=== PATIENT | female | born 1990 | race Hispanic/Latino ===

== ENCOUNTER 2016-12-05 16:51 | Emergency (ER) | payer OTHER ==
[~2016-12-05] VITALS: Ht 152.4 cm; Wt 119.3 kg
[~2016-12-05 16:51] MED LIST: PANTOPRAZOLE SO40 M1 PO
--- NOTE | 2016-12-05 17:11 | ED CARDIAC/CP/PALPITATIONS ---
History of Present Illness General Chief Complaint: Chest Pain Stated Complaint: BIBA WITH CHEST PAIN Source: patient, old records Exam Limitations: no limitations Vital Signs & Intake/Output Vital Signs & Intake/Output Vital Signs Date Time Temp Pulse Resp B/P Pulse O2 O2 Flow FiO2 Ox Delivery Rate 12/05 1917 96.7 66 18 125/77 98 Room Air 12/05 1708 Room Air 12/05 1657 97.3 58 18 110/56 99 Room Air Allergies Coded Allergies: Iodinated Contrast Media - Oral and (UNKNOWN 11/12/16) Reconcile Medications Pantoprazole Sodium 40 MG TABLET. 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 PT DENIES CARDIAC HX, DENIES SOB, DENIES ABD PAIN, V/D, DENIES URINARY S/S. ARRIVED AAOx3, STILL HAS CHEST PAIN 6/10, VSS, NSR, AFEBRILE. 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 EKG IN PROGRESS. Triage Nurses Notes Reviewed? 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 She reports positive nausea she denies shortness of breath there is no pain with deep inspiration. She states she was seen at [facility] a week ago for similar symptoms with no known cause identified. She denies cough fever chills no hemoptysis no leg pain most leg swelling. She denies any abdominal pain no back pain there is no radiation of her symptoms. She is declining anything for pain when offered she has not taken anything for her symptoms. Past History Travel History Traveled to [place] past 21 day No Medical History Any Pertinent Medical History? none Surgical History Surgical History: none Psychosocial History What is your primary language Greenlandic Tobacco Use: Never used ETOH Use: denies use Illicit Drug Use: denies illicit drug use Family History Hx Contributory? No Review of Systems Review of Systems Constitutional: Reports: no symptoms, see HPI. All Other Systems: Reviewed and Negative Comments Review of systems: See HPI, All other systems negative. Constitutional, no chills no fever, no malaise HEENT: No visual changes no sore throat no congestion Cardiovascular: chest pain , no palpitation Skin, no jaundice no rashes, no change in skin Respiratory: No dyspnea no cough no sputum GI: No nausea no vomiting, no diarrhea, : No dysuria Muscle skeletal: No joint pain, no joint swelling, no back pain, no neck pain Neurologic: No numbness no headache Psych: No stress Heme/endocrine: No bruising no bleeding Immunology: No lymphadenopathy Physical Exam Physical Exam General Appearance: well developed/nourished, alert, awake, comfortable Cardiovascular: regular rate/rhythm Comments: Well-developed well-nourished person in no acute distress HEENT: Normal EENT exam; PERRL, EOMI, HEAD is atraumatic. moist mucous membranes. Neck: Supple, no lymphadenopathy, normal range of motion Back: Nontender, no CVA tenderness. Full range of motion Cardiovascular: Regular rate and rhythms no murmurs rubs or gallops, normal JVP Respiratory: Chest tender to palpation.There were no bony deformities, no asymmetry. No respiratory distress. Patient speaking in full complete sentences. Breath sounds clear to auscultation bilaterally: NO W/R/R Abdomen: Soft, nontender nondistended, no appreciable organomegaly. Normal bowel sounds. No rebound/guarding, Extremity: No edema, full range of motion of extremities Neuro: Alert oriented x3, motor sensory normal, There were no obvious focal neurologic abnormalities. Skin: No appreciable rash on exposed skin, skin is warm and dry. Psych: Mood and affect is normal, memory and judgment is normal. Core Measures ACS in differential dx? No Severe Sepsis Present: No Septic Shock Present: No All Positive = PERC Ruled Out: Positive: age < 50 years, heart rate < 100 bpm, O2 sat > 94%, no hemoptysis, no hormone use, no prior DVT or PE, no unilateral leg swellin, no surgery/trauma w/ in 4w. Progress Differential Diagnosis: AMI, aortic dissection, CHF/pulm edema, costochondritis, hyperventilation, musculoskeletal pain, myocarditis, pericarditis, pneumonia, pneumothorax, pulmonary embolism Plan of Care: Orders Procedure Date/time Status TROPONIN LEVEL 12/05 1722 Complete HUMAN BETA HCG SCREEN 12/05 1722 Complete COMPREHENSIVE METABOLIC PANEL 12/05 1722 Complete CBC WITHOUT DIFFERENTIAL 12/05 1722 Complete EKG 12/05 1652 Active Laboratory Tests 12/05/168: Anion Gap 15, Estimated GFR > 60, BUN/Creatinine Ratio 18.3, Glucose 99, Calcium 9.7, Total Bilirubin 1.2, AST 107 H, ALT 49, Alkaline Phosphatase 78, Troponin I < 0.01, Total Protein 7.0, Albumin 4.0, Globulin 3.0, Albumin/Globulin Ratio 1.3, Total Beta HCG NEGATIVE, CBC w Diff NO MAN DIFF REQ, RBC 4.43, MCV 92.3, MCH 31.1 H, RDW 14.0, MPV 9.8, Gran % 81.0 H, Lymphocytes % 12.0 L, Monocytes % 6.4, Eosinophils % 0.4, Basophils % 0.2, Absolute Granulocytes 8.7 H, Absolute Lymphocytes 1.3, Absolute Monocytes 0.7 H, Absolute Eosinophils 0, Absolute Basophils 0, PUBS MCHC 33.7 Labs ordered old records reviewed patient is refusing anything for pain when offered resting currently in stretcher on her phone case d.w dr vince de la cruz with plan 12/05/2016 6:58:32 PM discussed the patient at length all of her lab results perc neg, he was reproducible with palpation of the chest she denies any symptoms she 's been normal sinus in the 60s on the monitor. Negative Homans sign I do not believe she requires further workup including CTA is currently off her lab results.'s discussed with her need to follow-up with Her primary care physician advised need to return anytime sooner with any concerns. They feel comfortable plan (ZULEYKA PISANO,BRYAN) Diagnostic Imaging: Viewed by Me: Radiology Read. Discussed w/RAD: Radiology Read. Radiology Impression: PATIENT: AMADA VILA PRESENT AGE: 26 PATIENT ACCOUNT NO: [id number] : 91 LOCATION: [facility] ORDERING PHYSICIAN: BRYAN PISANO SERVICE DATE: 12/05/16-1722 EXAM TYPE: RAD - XRY-PORTABLE CHEST XRAY EXAMINATION: XR PORTABLE CHEST CLINICAL INFORMATION: Chest pain. Cardiomegaly. COMPARISON: None. TECHNIQUE: Portable view of the chest was obtained. 5:39 PM FINDINGS: No significant abnormality is noted involving the heart, lungs, mediastinum, bony thorax or soft tissues. IMPRESSION: Unremarkable examination. DICTATED BY: TINA OCAMPO MD DATE/TIME DICTATED:12/05/161804 [employer] DATABASE MANAGER:CURRY DATE/TIME TRANSCRIBED:1804 CONFIDENTIAL, DO NOT COPY WITHOUT APPROPRIATE AUTHORIZATION. < Electronically signed in Other Vendor System> SIGNED BY: TINA OCAMPO MD 1808 Initial ED EKG: normal sinus at 60, no acute ST segment changes normal axis Departure Departure Time of Disposition: 1849 Disposition: HOME OR SELF CARE Condition: Stable Clinical Impression Primary Impression: Atypical chest pain Referrals: AFUA LARA MD (PCP/Family) Additional Instructions: Follow-up with your primary care physician. Tylenol 1000 mg every 8 hours as needed for pain Departure Forms: Customer Survey General Discharge Information Critical Care Note Critical Care Note Critical Care Time: non-applicable
[2016-12-05 17:37] LABS: ABSOLUTE BASOPHIL COUNT 0 /CUMM (0.0-0.2); ABSOLUTE EOSINOPHIL COUNT 0 /CUMM (0.0-0.7); ABSOLUTE GRANULOCYTE CT 8.7 /CUMM (1.4-6.5); ABSOLUTE LYMPH COUNT 1.3 /CUMM (1.2-3.4); ABSOLUTE MONOCYTE COUNT 0.7 /CUMM (0.10-0.60); BASOPHIL % 0.2 % (0.0-2.0); EOSINOPHIL % 0.4 % (0-5); HEMATOCRIT 40.9 % (37-47); MEAN CORPUSCULAR HGB 31.1 PG (27.0-31.0); MEAN CORPUSCULAR HGB CONC 33.7 G/DL (33.0-37.0); MEAN CORPUSCULAR VOLUME 92.3 FL (81.0-99.0); MEAN PLATELET VOLUME 9.8 FL (7.4-10.4); PLATELET COUNT 228 /CUMM (130-400); RED BLOOD CELL CT 4.43 /CUMM (4.20-5.40); WHITE BLOOD CELL COUNT 10.8 /CUMM (4.8-10.8)
--- NOTE | 2016-12-05 18:09 | RADIOLOGY REPORT ---
EXAMINATION: XR PORTABLE CHEST CLINICAL INFORMATION: Chest pain. Cardiomegaly. COMPARISON: None. TECHNIQUE: Portable view of the chest was obtained. 5:39 PM FINDINGS: No significant abnormality is noted involving the heart, lungs, mediastinum, bony thorax or soft tissues. IMPRESSION: Unremarkable examination.
[2016-12-05 19:17] VITALS: BP 125/77
== END 2016-12-05 19:19 ==
LOC: ERH 16:51
PROVIDERS: Physician Assistant Medical
DX: R07.89 Other chest pain (principal)
CPT/HCPCS: 93005; 93010

== ENCOUNTER 2016-12-30 02:15 | Emergency (ER) | payer OTHER ==
[~2016-12-30] VITALS: Ht 165.1 cm; Wt 115.7 kg
--- NOTE | 2016-12-30 02:31 | ED GI/GU/ABDOMINAL COMPLAINT ---
History of Present Illness General Chief Complaint: General Adult Stated Complaint: "+N+V-D, UPPER ABD PAIN, HX BARIATRIC [id number]" Source: patient Exam Limitations: no limitations Vital Signs & Intake/Output Vital Signs & Intake/Output Vital Signs Date Time Temp Pulse Resp B/P Pulse O2 O2 Flow FiO2 Ox Delivery Rate 12/30 0459 97.9 70 18 109/68 98 Room Air 12/30 0347 Room Air 12/30 0247 97.7 76 18 101/66 98 Room Air Allergies Coded Allergies: Iodinated Contrast Media - Oral and (UNKNOWN 11/12/16) Reconcile Medications Ondansetron (Zofran Odt) 4 MG TAB.RAPDIS 1 TAB SL TID PRN NAUSEA Pantoprazole Sodium (Protonix) 40 MG TABLET.DR 1 TAB PO DAILY STOMACH PAIN Triage Nurses Notes Reviewed? yes ? n Is pt currently ? No Onset: Gradual Duration: hour(s): Timing: recent history Quality/Severity: burning Location: epigastric Radiation: no radiation Activities at Onset: none Modifying Factors: Worsens With: palpation, vomiting. Associated Symptoms: abdominal pain HPI: 26-year-old woman history of gastric sleeve presents with midepigastric burning pain and vomiting that began at approximately 7 PM yesterday. She is uncertain of any possible etiology. She notes nausea, but no fever, diarrhea, shortness of breath, chest pain. She is otherwise well. Past History Travel History Traveled to [place] past 21 day No Medical History Any Pertinent Medical History? see below for history Surgical History Surgical History: gastric sleeve, August 2016 Psychosocial History What is your primary language Mongolian Family History Hx Contributory? No Review of Systems Review of Systems Constitutional: Reports: no symptoms. EENTM: Reports: no symptoms. Respiratory: Reports: no symptoms. Cardiovascular: Reports: no symptoms. GI: Reports: no symptoms. Genitourinary: Reports: no symptoms. Musculoskeletal: Reports: no symptoms. Skin: Reports: no symptoms. Neurological/Psychological: Reports: no symptoms. Hematologic/Endocrine: Reports: no symptoms. Immunologic/Allergic: Reports: no symptoms. All Other Systems: Reviewed and Negative Physical Exam Physical Exam General Appearance: well developed/nourished, mild distress Head: atraumatic, normal appearance Eyes: Bilateral: normal appearance. Ears, Nose, Throat, Mouth: hearing grossly normal Neck: normal inspection, supple, full range of motion Respiratory: normal breath sounds, chest non-tender, no respiratory distress, quiet respiration Cardiovascular: regular rate/rhythm Gastrointestinal: normal bowel sounds, soft, mid epigastric tenderness. No rebound no guarding. No Green sign Back: normal inspection Extremities: normal range of motion Neurologic/Psych: no motor/sensory deficits, awake, alert, oriented x 3 Skin: intact, normal color, warm/dry Core Measures ACS in differential dx? No Severe Sepsis Present: No Septic Shock Present: No Progress Differential Diagnosis: astritis versus gastroenteritis versus other Plan of Care: Laboratory Tests 12/30/16 0230: Total Bilirubin Cancelled, Direct Bilirubin Cancelled, AST Cancelled, ALT Cancelled, Alkaline Phosphatase Cancelled, Total Protein Cancelled, Albumin Cancelled, CBC w Diff Cancelled, WBC Cancelled, RBC Cancelled, Hgb Cancelled, Hct Cancelled, MCV Cancelled, MCH Cancelled, RDW Cancelled, Plt Count Cancelled, MPV Cancelled, PUBS MCHC Cancelled Initial ED EKG: none Departure Departure Disposition: HOME OR SELF CARE Condition: Stable Clinical Impression Primary Impression: Abdominal pain Secondary Impressions: Gastroenteritis Referrals: AFUA LARA MD (PCP/Family) Departure Forms: Customer Survey General Discharge Information Prescriptions: Current Visit Scripts Pantoprazole Sodium (Protonix) 1 TAB PO DAILY #30 TAB Ondansetron (Zofran Odt) 1 TAB SL TID PRN NAUSEA #10 TAB Comments 12/30/2016, 3:44 AM - after several attempts for blood draw, they have been unsuccessful. I discussed this at length with the patient. Given that she likely has gastroenteritis or gastritis, will try supportive measures before attempting further blood draw. The patient expresses appreciation at this plan. 12/30/16, 4:45am... pt feeling well after supportive measures. She declines blood draw. She would like to go home. Her abdominal exam is benign. She is safe for discharge with close follow up.
[2016-12-30] MEDS ORDERED: ZOFRAN ODT4 M1 SL (03:23)
[2016-12-30] MEDS ORDERED: PROTONIX40 M3 PO (03:23)
[2016-12-30 04:59] VITALS: BP 109/68
== END 2016-12-30 04:59 ==
LOC: ERH 02:15
DX: K52.9 Noninfective gastroenteritis and colitis, unspecified (principal)
CPT/HCPCS: 96372; J1885; J3101

== ENCOUNTER 2017-02-05 21:47 | Inpatient (IN) | payer OTHER ==
[~2017-02-05] VITALS: Ht 165.1 cm; Wt 111.6 kg
[~2017-02-05 21:47] MED LIST changes: +PROTONIX40 M3 PO; +ZOFRAN ODT4 M1 SL
--- NOTE | 2017-02-05 22:07 | ED GI/GU/ABDOMINAL COMPLAINT ---
History of Present Illness General Chief Complaint: Abdominal Pain/Flank Pain Stated Complaint: BIBA FOR EVAL EPI GASTRIC PAIN Source: patient, old records Exam Limitations: no limitations Vital Signs & Intake/Output Vital Signs & Intake/Output Vital Signs Date Time Temp Pulse Resp B/P Pulse O2 O2 Flow FiO2 Ox Delivery Rate 02/05 2149 97.0 63 18 120/67 95 Room Air Room Air ED Intake and Output 02/06 0000 02/05 1200 Intake Total 1000 Output Total Balance 1000 Intake, IV 1000 Allergies Uncoded Allergies: IODINE IV CONTRAST (02/05/17) Reconcile Medications Ondansetron (Zofran Odt) 4 MG TAB.RAPDIS 1 TAB SL TID PRN NAUSEA Pantoprazole Sodium (Protonix) 40 MG TABLET.DR 1 TAB PO DAILY STOMACH PAIN Triage Note: 26 YEAR OLD FEMALE BIBA FROM HOME C/O EPIGASTRIC PAIN 7/10 WITH NAUSEA AND VOMITING. PER [facility] PT RECIEVED 5MG OF IV MORPHINE AND 4MG IV ZOFRAN PER MEDIC. #18 ESTABLISHED TO LEFT HAND WITH NS LITER BOLUS RUNNING. PT ALERT AND ORIENTED X3, CLEAR SPEECH. REPORTS SYMPTOMS STARTED AT 1100 AM. REPORTS HISTORY OF GASTRIC SLEEVE AND GERD.' Triage Nurses Notes Reviewed? yes ? n Is pt currently ? No Onset: Abrupt Duration: hour(s): (12), constant Timing: recent history Quality/Severity: aching, cramping, moderate, severe Severity Numbers: 7 Location: epigastric Radiation: no radiation Activities at Onset: none Prior Abdominal Problems: recent trauma No Modifying Factors: none Associated Symptoms: nausea/vomiting HPI: 26-year-old female history of gastric sleeve surgery in August 2016 at [facility] presents emergency room brought in by ambulance complaining of sudden onset epigastric nonradiating abdominal pain 7 out of 10 associated nausea vomiting 2. The patient received 5 mg of morphine IV and 4 mg of Zofran in route with improvement in her symptoms. The patient denies any diarrhea sick contacts recent travel. She denies any other surgeries on her abdomen in the past. Pain is nonradiating chest pain shortness of breath fever or chills. Patient denies alcohol or tobacco use. Pain is aching constant. There are no modifying factors or associated symptoms. The patient took by mouth Zofran at home without improvement in her symptoms. (ZULEYKA PISANO,BRYAN) Past History Travel History Traveled to [place] past 21 day No Medical History Any Pertinent Medical History? 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 No (BRYAN CORDOVA) Review of Systems Review of Systems Constitutional: Reports: see HPI. All Other Systems: Reviewed and Negative Comments Review of systems: See HPI, All other systems negative. Constitutional, no chills no fever, no malaise HEENT: No visual changes no sore throat no congestion, no ear pain Cardiovascular: No chest pain , no palpitation , Skin, no jaundice no rashes, no change in skin Respiratory: No dyspnea no cough no sputum no hemoptysis GI: nausea vomiting, no diarrhea, no bloating/constipation : No dysuria No hematuria, no frequency, Muscle skeletal: No joint pain, no back pain, no neck pain, Neurologic: No numbness, no headache Psych: No stress Heme/endocrine: No bruising no bleeding Immunology: No lymphadenopathy (BRYAN CORDOVA) Physical Exam Physical Exam General Appearance: well developed/nourished, no apparent distress, alert, awake Gastrointestinal: soft, tenderness Comments: Well-developed well-nourished person in no acute distress HEENT: Normal EENT exam; PERRL, EOMI. HEAD is atraumatic. moist mucous membranes. Neck: Supple, normal range of motion Back: Nontender, no CVA tenderness. Full range of motion Cardiovascular: Regular rate and rhythms no murmurs rubs Respiratory: Chest nontender.There were no bony deformities, no asymmetry. No respiratory distress. Patient speaking in full complete sentences. Breath sounds clear to auscultation bilaterally: NO W/R/R Abdomen: Soft, EPIGASTRIC TENDERNESS, NO RUQ TENDERNESS, NEG YOST SIGNS, nondistended, no appreciable organomegaly. Normal bowel sounds. No rebound/ guarding, No appreciable enlargement of the abdominal aorta, No ascites. Extremity: No edema, full range of motion of extremities Neuro: Alert oriented x3, motor sensory normal, There were no obvious focal neurologic abnormalities. Skin: No appreciable rash on exposed skin, skin is warm and dry. No jaundice Psych: Mood and affect is normal, memory and judgment is normal. Core Measures ACS in differential dx? No Severe Sepsis Present: No Septic Shock Present: No (ZULEYKA PISANO,BRYAN) Progress Differential Diagnosis: appendicitis, biliary colic, bowel obstruction, colon cancer, cholecystitis, diverticulitis, gastritis, hepatitis, inflamm bowel dis, pancreatitis, cholelithiasis, cholangitits, choledocholithiasis Plan of Care: Orders Procedure Date/time Status Nothing by Mouth 02/06 B Active US-LIMITED ABDOMEN 02/06 0700 Active LACTIC ACID 02/06 0105 Active Add-on Test (ER Only) 02/06 0051 Active Admit to inpatient 02/06 0028 Active Vital Signs 02/06 0028 Active Code Status 02/06 0028 Active Patient Data 02/06 0025 Active Add-on Test (ER Only) 02/06 0013 Active URINE DRUG SCREEN FOR ER ONLY 02/06 0013 Active URINALYSIS 02/06 0013 Active ETHANOL 02/05 2242 Active DIRECT BILIRUBIN 02/05 2242 Active LIPASE 02/05 2205 Active LACTIC ACID 02/05 2205 Active HUMAN BETA HCG SCREEN 02/05 2205 Active COMPREHENSIVE METABOLIC PANEL 02/05 2205 Active CBC WITHOUT DIFFERENTIAL 02/05 2205 Complete AMYLASE 02/05 2205 Active Intake & Output 02/05 2153 Active Laboratory Tests 02/06/17 0035: Methadone Screen Pending, Barbiturate Screen Pending, Ur Phencyclidine Scrn Pending, Amphetamines Screen Pending, U Benzodiazepines Scrn Pending, Urine Cocaine Screen Pending, Urine Cannabis Screen Pending, Urine Color Pending, Urine Clarity Pending, Urine pH Pending, Ur Specific [place] Pending, Urine Protein Pending, Urine Ketones Pending, Urine Nitrite Pending, Urine Bilirubin Pending, Urine Urobilinogen Pending, Ur Leukocyte Esterase Pending, Ur Microscopic SEDIMENT EXAMINED, Urine RBC Pending, Urine Hemoglobin Pending, Urine Glucose Pending 02/05/17 2242: Anion Gap 9, Estimated GFR > 60, BUN/Creatinine Ratio 20.0, Glucose 100 H, Lactic Acid 1.0, Calcium 9.4, Total Bilirubin 2.1 H, Direct Bilirubin Pending, AST 788 H, ALT 462 H, Alkaline Phosphatase 145 H, Total Protein 6.4, Albumin 3.7, Globulin 2.7, Albumin/Globulin Ratio 1.4, Amylase 45, Lipase 66, Total Beta HCG NEGATIVE, CBC w Diff NO MAN DIFF REQ, RBC 4.11 L, MCV 93.2, MCH 31.2 H, RDW 13.5, MPV 9.3, Gran % 83.6 H, Lymphocytes % 8.9 L, Monocytes % 7.3, Eosinophils % 0.1, Basophils % 0.1, Absolute Granulocytes 6.6 H, Absolute Lymphocytes 0.7 L, Absolute Monocytes 0.6, Absolute Eosinophils 0, Absolute Basophils 0, PUBS MCHC 33.5, Serum Alcohol < 10.0 Labs ordered old records reviewed patient is declining anything else for pain or nausea at this time IV fluids are running 02/05/2017 11:38:26 PM I discussed with the patient at length all of her lab results CT findings. Patient is resting currently denies pain or nausea at this time call was placed to GI case discussed with Dr. Kemp Case discussed with Dr. green who will consult- advised pt could have ercp at this faciliity despite gastric sleeve case d/w dr mcelroy will admit, us for the morning ordered as us has not been available during the pts er evaluation, on repeat eval pt again denies any complaints abd soft nontender, (BRYAN CORDOVA) Diagnostic Imaging: Viewed by Me: CT Scan. Discussed w/RAD: CT Scan. Initial ED EKG: none (BRYAN CORDOVA) Departure Departure Disposition: STILL A PATIENT Condition: Stable Clinical Impression Primary Impression: Transaminitis Secondary Impressions: Abdominal pain, Elevated bilirubin Referrals: AFUA LARA MD Departure Forms: Customer Survey General Discharge Information Admission Note Spoke With: CIPRIANO MCELROY MD Documentation of Exam: Documentation of any treatments & extenuating circumstances including Concerns Regarding Discharge (functional status, medication knowledge or non-compliance, living conditions, etc.) that warrant an admission rather than observation: GI consult possible ercp, trend labs, iv pain medications, iv antiemetics given elevated liver function tests which are new compared to recent premature discharge would be medically harmful (BRYAN CORDOVA) PA/METALLURGICAL OR MATERIALS TECHNICIAN Co-Sign Statement Statement: ED Attending supervision documentation- [] I saw and evaluated the patient. I have also reviewed all the pertinent lab results and diagnostic results. I agree with the findings and the plan of care as documented in the PA's/METALLURGICAL OR MATERIALS TECHNICIAN's documentation. [X] I have reviewed the ED Record and agree with the PA's/METALLURGICAL OR MATERIALS TECHNICIAN's documentation. [] Additions or exceptions (if any) to the PAs/METALLURGICAL OR MATERIALS TECHNICIAN's note and plan are summarized below: [] (TAMIKA WHITE,SADIE)
[2017-02-05 22:48] LABS: ABSOLUTE BASOPHIL COUNT 0 /CUMM (0.0-0.2); ABSOLUTE EOSINOPHIL COUNT 0 /CUMM (0.0-0.7); ABSOLUTE GRANULOCYTE CT 6.6 /CUMM (1.4-6.5); ABSOLUTE LYMPH COUNT 0.7 /CUMM (1.2-3.4); ABSOLUTE MONOCYTE COUNT 0.6 /CUMM (0.10-0.60); BASOPHIL % 0.1 % (0.0-2.0); EOSINOPHIL % 0.1 % (0-5); HEMATOCRIT 38.3 % (37-47); MEAN CORPUSCULAR HGB 31.2 PG (27.0-31.0); MEAN CORPUSCULAR HGB CONC 33.5 G/DL (33.0-37.0); MEAN CORPUSCULAR VOLUME 93.2 FL (81.0-99.0); MEAN PLATELET VOLUME 9.3 FL (7.4-10.4); PLATELET COUNT 229 /CUMM (130-400); RBC DISTRIBUTION WIDTH 13.5 % (11.5-14.5); RED BLOOD CELL CT 4.11 /CUMM (4.20-5.40); WHITE BLOOD CELL COUNT 7.8 /CUMM (4.8-10.8)
[2017-02-05 22:49] LABS: GRANULOCYTE % 83.6 % (42.2-75.2)
--- NOTE | 2017-02-05 23:30 | CT SCAN REPORT ---
EXAMINATION: CT ABDOMEN AND PELVIS WITHOUT CONTRAST CLINICAL INFORMATION: Epigastric pain. History of gastric sleeve bypass surgery. COMPARISON: CT abdomen pelvis 09/30/2016 TECHNIQUE: Multidetector volumetric imaging was performed from the superior aspect of the liver through the pubic symphysis. Sagittal and coronal reformatted images were obtained on the technologist's workstation. No oral or intravenous contrast. DLP: 1014.33 mGy-cm FINDINGS: LUNG BASES: The visualized lung bases are unremarkable. LIVER, GALLBLADDER, AND BILIARY TREE: The liver is normal in size, shape, and attenuation. No focal hepatic lesion or biliary ductal dilatation is present. The gallbladder is unremarkable with no evidence of radiopaque gallstones, gallbladder wall thickening, or obvious pericholecystic inflammatory changes. PANCREAS: Unremarkable. SPLEEN: Unremarkable. ADRENAL GLANDS: Unremarkable. KIDNEYS AND URETERS: The kidneys are normal in size, shape, and attenuation. No hydronephrosis, hydroureter, or calculi seen. No perinephric stranding. BLADDER: Unremarkable. GASTROINTESTINAL TRACT: Status post gastric surgery. No acute change of the bowel. No bowel wall thickening. No bowel obstruction. Moderate volume of stool throughout the colon. The appendix is normal. Small bowel loops are unremarkable. ABDOMINAL WALL: No significant hernia is appreciated. LYMPH NODES: Normal. VASCULAR: Unremarkable. PELVIC VISCERA: Uterus is anteverted. No adnexal abnormality. OSSEOUS STRUCTURES: Unremarkable. IMPRESSION: No acute abnormality CT scan abdomen and pelvis.
--- NOTE | 2017-02-06 02:03 | History & Physical ---
GABO WHITE,MEAGAN 02/06/17 0203: General Information and HPI MD Statement: I have seen and personally examined SHARMAINE VILA and documented this H&P. The patient is a 26 year old F who presented with a patient stated chief complaint of [, pain]. Source of Information: patient, old records Exam Limitations: no limitations History of Present Illness: This is a 26-year-old female past medical history significant for sleep apnea on CPAP, gastric sleeve in and 2015, and a D&C, who comes in with chief complaint of epigastric pain. Patient states that she was at work when she felt dizzy, had a hot flash and subsequently had epigastric pain. She also had some nausea and nonbilious, nonbloody vomiting. She states that she has had similar epigastric abdominal pain that is worse with eating after her surgery but attributed it to postsurgical state. She states the pain continues to be worse with eating and that she has one to 2 episodes a month of similar presentation. However this is the worst it has been. She endorses nausea, vomiting, body aches but denies any chills, fever or diarrhea. Denies sick contacts or travel. She took two Zofran but threw them up. Patient denies smoking, alcohol consumption, or IV drug abuse. However she states she used marijuana yesterday. She states that she uses marijuana 1-2 times a year. Her symptoms were not relieved or exacerbated by the marijuana. Home meds are pantoprazole and Zofran. No personal history or family history of gallstones or intra-abdominal pathology. Allergies/Medications Allergies: Uncoded Allergies: IODINE IV CONTRAST (02/05/17) Home Med list Ondansetron (Zofran Odt) 4 MG TAB.RAPDIS 1 TAB SL TID PRN NAUSEA Pantoprazole Sodium (Protonix) 40 MG TABLET. 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 Ambulation: independent IADLs Independent: shopping, housework, finances, food prep, telephone, transportation , medication admin. Review of Systems Review of Systems Constitutional: Reports: chills. Denies: diaphoresis, fever, malaise, weakness. EENTM: Denies: blurred vision. Cardiovascular: Denies: chest pain, palpitations. Respiratory: Denies: cough, short of breath. GI: Reports: abdominal pain, constipation, nausea, vomiting. Denies: bloating, bloody stool. Genitourinary: Reports: no symptoms. Musculoskeletal: Reports: no symptoms. Skin: Reports: no symptoms. Exam & Diagnostic Data Last 24 Hrs of Vital Signs/I&O Vital Signs Date Time Temp Pulse Resp B/P Pulse O2 O2 Flow FiO2 Ox Delivery Rate 02/06 0248 97.7 50 20 104/60 99 Room Air 02/06 0213 53 16 119/69 98 Room Air 02/05 2149 97.0 63 18 120/67 95 Room Air Room Air Intake & Output 02/06 0800 02/06 0000 02/05 1600 Intake Total 100 1000 Output Total Balance 100 1000 Intake, IV 100 1000 Patient 112.037 kg Weight Physical Exam General Appearance Alert, Oriented X3, Cooperative, No Acute Distress Skin No Rashes, No Breakdown, No Significant Lesion, NO EVIDENCE OF JAUNDICE HEENT Atraumatic, PERRLA, EOMI, Mucous Membr. moist/pink, SCLERA ANICTERIC Neck Supple Cardiovascular Regular Rate, Normal S1, Normal S2, 2/6 SYSTOLIC MURMUR Lungs Clear to Auscultation, Normal Air Movement Abdomen PATIENT HAD HYPOACTIVE BOWEL SOUNDS. pOSITIVE Green'S SIGN TO DEEP PALPATION IN RIGHT UPPER QUADRANT. sHE HAD SOME DIFFUSE TENDERNESS IN THE EPIGASTRIC AND LEFT UPPER QUADRANT WELL. nO REBOUND, NO GUARDING. sOFT ABDOMEN. Neurological Normal Speech, Cranial Nerves 3-12 NL Extremities No Edema Last 24 Hrs of Labs/Rory: Laboratory Tests 02/06/17 0211: PT Cancelled, INR Cancelled 02/06/17 0105: Lactic Acid Cancelled 02/06/17 0035: Urine Opiates Screen > 4000.00 H, Methadone Screen < 40, Barbiturate Screen < 60, Ur Phencyclidine Scrn < 6.00, Amphetamines Screen < 100, U Benzodiazepines Scrn < 85, Urine Cocaine Screen < 50, Urine Cannabis Screen 75.70 H, Urine Color YEL, Urine Clarity CLEAR, Urine pH 6.0, Ur Specific [place] >= 1.030, Urine Protein TRACE H, Urine Ketones NEG, Urine Nitrite POS H, Urine Bilirubin POS@ICTO H, Urine Urobilinogen 4.0 H, Ur Leukocyte Esterase NEG, Ur Microscopic SEDIMENT EXAMINED, Urine WBC RARE, Ur Epithelial Cells FEW, Urine Bacteria MOD H, Urine Hemoglobin NEG, Urine Glucose NEG 02/05/17 2242: Anion Gap 9, Estimated GFR > 60, BUN/Creatinine Ratio 20.0, Glucose 100 H, Lactic Acid 1.0, Calcium 9.4, Total Bilirubin 2.1 H, Direct Bilirubin 1.3 H, AST 788 H, ALT 462 H, Alkaline Phosphatase 145 H, Total Protein 6.4, Albumin 3.7, Globulin 2.7, Albumin/Globulin Ratio 1.4, Amylase 45, Lipase 66, Total Beta HCG NEGATIVE, CBC w Diff NO MAN DIFF REQ, RBC 4.11 L, MCV 93.2, MCH 31.2 H, RDW 13.5, MPV 9.3, Gran % 83.6 H, Lymphocytes % 8.9 L, Monocytes % 7.3, Eosinophils % 0.1, Basophils % 0.1, Absolute Granulocytes 6.6 H, Absolute Lymphocytes 0.7 L, Absolute Monocytes 0.6, Absolute Eosinophils 0, Absolute Basophils 0, PUBS MCHC 33.5, Serum Alcohol < 10.0 Assessment/Plan Assessment: This is a 26-year-old female past medical history of sleep apnea and gastric sleeve who presents with chief complaint of abdominal pain. Workup has shown elevated LFTs, with abdominal CT shows no acute intra-abdominal pathology including gallstones. Patient is admitted for further workup and pain management. ED workup shows: Vitals: 97, 63, 18, 120/67, 95. AST 78, ALT 462, alkaline phosphatase 145. Beta hCG negative. Negative amylase and lipase. BEP within normal limits. White count 7.8, hemoglobin 12.8 and hematocrit 38.3. UA showed positive urine bilirubin attention of 4, positive urine nitrite and bacteria. abdominal CT showed no acute intra-abdominal process. PLAN Abdominal pain with transamanitis: At this time etiology of abdominal pain is currently unclear. Patient has elevated AST and ALT at 788 and 462. Her alkaline phosphatase is 145. Denies any history of alcohol abuse; her alcohol level was negative. There is a question of PEERZ given her body habitus. Additionally, given that she is post gastric sleeve and pain seems to get worse with eating, there is concern for gallbladder pathology. However alkaline phosphatase is only 145 with much higher increase in AST/ALT. Need to rule out possibility of choledocholithiasis or distal stone obstruction. * Right upper quadrant ultrasound * GI consult * IV fluid * Unasyn * Urine tox * IV Protonix 40 mg twice a day * Patient going for GI intervention, ERCP in a.m. * Fractionated Bili * Trend LFT * Check INR FULL CODE NPO CHEMICAL DVT PPX As Ranked By This Provider Problem List: 1. Abdominal pain 2. Transaminitis Core Measures/Miscellaneous Acute Coronary Syndrome ACS Diagnosis: No Cerebrovascular Accident CVA/TIA Diagnosis: No Congestive Heart Failure CHF Diagnosis: No Venous Thromboembolism VTE Risk Factors: Age > 40 [facility] prophylaxis d/t: No contraindications No VTE Pharm Prophylaxis d/t: No contraindications VTE Diagnosis: No VTE Type: NONE VTE Confirmed by (Test): NONE Severe Sepsis Severe Sepsis Present: No Septic Shock Septic Shock Present: No Miscellaneous Documentation Attending Case Discussed With: CIPRIANO GOMES MD Primary Care Physician: TRES HARDY MD Patient sees these Specialists unknown Level of Patient Care: General Medicine MIREYA WHITE,[facility] 02/06/17 0226: Resident Review Statement Resident Statement: examined this patient, discussed with fashion buying internship, agreed with fashion buying internship, discussed with family, reviewed EMR data (avail), discussed with nursing , discussed with case mgmt, reviewed images, amended to note Other Findings: Sharmaine is a morbidly obese 26 year old woman s/p gastric sleeve 09/05/2016 with medical hx of GERD and obstructive sleep apnea on nocturnal CPAP. She presents with epigastric pain nausea vomiting (nonbilious nonbloody) that started this morning at approximately 11 AM. She had similar episodes one month and 2 months ago respectively. At the time she called her surgeon who said it was normal postoperatively. She has no personal history of gallstones. Does endorse body aches and chills without fever or diarrhea. At present she is afebrile, normal heart rate and blood pressure 95% on room air. Physical examination reveals epigastric tenderness with positive Green sign. CBC is unremarkable. Total bilirubin is elevated at 2.1. Transaminitis AST 788 ALT 462 ALP 145. Amylase lipase are negative. CT of the abdomen and pelvis not reveal any acute abnormality. Suspect gallstone cholecystitis with resultant transaminitis/acute liver injury without hepatic encephalopathy. - Problems - Abdominal pain, suspect cholecystitis secondary to gallstone ?Cholangitis Acute liver injury FREDY - Plan - Keep npo Supportive tx with tylenol, zofran Unasyn 3g q6 iv Await fractionated bilirubin Check INR Trend LFTs NS @ 100cc/hr Anticipate ERCP in am Await RUQ US Await Gi recs Nocturnal CPAP DVT ppx - lovenox FC MIREYAGUILLERMINARICKEY 02/06/17 0738: Attending MD Review Statement Attending Statement Attending MD Statement: examined this patient, discuss w/resident/PA/RADIOCHEMICAL TECHNICIAN, agreed w/resident/PA/RADIOCHEMICAL TECHNICIAN, reviewed EMR data (avail), reviewed images, amended to note Attending Assessment/Plan: CC: Abdominal pain PMH: FREDY, gastric sleeve surgery August 2016 Patient had been getting epigastric pain since November on and off, related to food, associated with nausea. Worsened yesterday, could not tolerate, associated with nausea and vomiting nonbilious, nonbloody. Denies fever, chills, chest pain , diarrhea, constipation, black colored stools. Never been diagnosed to have gallbladder stones, PEREZ. Vitals: Afebrile, otherwise unremarkable. On exam: A O 3, no acute distress, neck supple, no JVD, no lymphadenopathy, mucosa dry, obese, Abdomen: Soft, no guarding, no rigidity, tenderness epigastric and right and left quadrant, ? Green sign positive. CVS: S1-S2, RRR. RS: Clear to auscultate bilaterally. No focal neurological deficit, no dependent edema, no skin rashes or inflammation, peripheral pulsation perfusion normal. Labs AST 788, ALT 462, total bilirubin 2.1, alkaline phosphatase 146, lipase 66, WBC 7.8 with neutrophils 83% otherwise CBC BMP unremarkable. CT abdomen and pelvis without IV contrast: No acute intra-abdominal pathology A and P #1 transaminitis: With elevated bilirubin and alkaline phosphatase. Green's sign marginally positive, CT scan is not significant for any gallstones or cholecystitis or CBD dilatation. In view of jaundice and abdominal pain possibility of cholangitis, cholecystitis cannot be excluded. Obtain right upper quadrant ultrasound, patient is afebrile, stable for now covered with antibiotics, Unasyn for suspected cholangitis until ruled out with right upper quadrant ultrasound. Consult GI. Patient denies alcohol use, obtain alcohol level, U tox. Continue gentle hydration, the recent surgery of gastric sleeve continue with IV Protonix 40 mg IV twice a day for gastritis or any gastric ulcers as cause of epigastric pain. Nothing by mouth. #2 FREDY: Continue nighttime CPAP
[2017-02-06 02:48] VITALS: BP 104/60
[2017-02-06 06:44] VITALS: BP 110/64
--- NOTE | 2017-02-06 07:40 | Admission Certification ---
Admission Certification Certification Statement - As attending physician, I certify that at the time of - admission, based on clinical presentation, severity of - symptoms, need for further diagnostic testing and - therapeutic interventions, and risk of adverse outcomes - without in-hospital treatment, in my clinical assessment, - this patient requires an acute hospital stay for a minimum - of two nights or longer. I have also considered psychsocial - factors such as support system, advanced age, financial - issues, cognitive issues, and failed out-patient treatments, - past re-admission history, safety of patient, and lack of - compliance as applicable. Specific rationale supporting this admission is: Transaminitis with elevated bilirubin, suspected cholangitis.
[2017-02-06 08:40] LABS: ABSOLUTE BASOPHIL COUNT 0 /CUMM (0.0-0.2); ABSOLUTE EOSINOPHIL COUNT 0 /CUMM (0.0-0.7); ABSOLUTE GRANULOCYTE CT 4.9 /CUMM (1.4-6.5); ABSOLUTE LYMPH COUNT 2.4 /CUMM (1.2-3.4); ABSOLUTE MONOCYTE COUNT 0.4 /CUMM (0.10-0.60); BASOPHIL % 0.3 % (0.0-2.0); EOSINOPHIL % 0.4 % (0-5); GRANULOCYTE % 63.6 % (42.2-75.2); HEMATOCRIT 36.6 % (37-47); MEAN CORPUSCULAR HGB 31.4 PG (27.0-31.0); MEAN CORPUSCULAR HGB CONC 33.5 G/DL (33.0-37.0); MEAN CORPUSCULAR VOLUME 93.4 FL (81.0-99.0); MEAN PLATELET VOLUME 10.8 FL (7.4-10.4); RBC DISTRIBUTION WIDTH 13.4 % (11.5-14.5); RED BLOOD CELL CT 3.92 /CUMM (4.20-5.40); WHITE BLOOD CELL COUNT 7.8 /CUMM (4.8-10.8)
--- NOTE | 2017-02-06 08:43 | Event Note ---
Event Note Event Note: This morning there was confusion if the usg abdomen order was cancelled. I called the usg tech myself and clarified that the order is not cancelled infact there are two active orders one from ER and one from Medical team since 7 am this morning. The tech notified us that the usg abdomen can not be done before 11 am due to procedures and outpatient appointments.
[2017-02-06 09:51] LABS: PT 12.2 SEC (9.4-12.5)
--- NOTE | 2017-02-06 10:34 | Cons- Gastroenterology ---
BRITTANEY SORTO 02/06/17 1034: General Information and HPI Consulting Request Date of Consult: 02/06/17 Requested By: CIPRIANO GOMES MD Reason for Consult: Transaminitis Source of Information: patient Exam Limitations: no limitations History of Present Illness: Mrs Garcia is a 26-year-old lady with a PMH of FREDY on nocturnal CPAP (11 mmHg), metrorrhagia s/p D&C via hysteroscopy on 01/15/2016, morbid obesity s/p gastric sleeve on 09/05/2016 who was admitted with complaints of epigastric abdominal pain and multiple episodes of nonbloody vomitus. Patient reports intermittent episodes of epigastric abdominal pain stabbing/ pressure sensation since her gastric sleeve procedure, worse with laying supine, walking and occasional postprandial exacerbation. She was on Dilaudid 2 mg PO for the first 2 weeks after her procedure but has not taken any since then. She was also prescribed pantoprazole for gastric reflux symptoms which was discontinued by her colorectal surgeon earlier this year. Over the past couple months she was evaluated at [facility] with complaints of midsternal/epigastric abdominal discomfort with negative workup and restarted on pantoprazole and Zofran for symptomatic control. She presents again with similar epigastric abdominal discomfort associated with nausea and nonbloody emesis, postprandial exacerbation, worse than previous episodes. She denies any fever, chills, diarrhea, bloody stool associated with this. No improvement in her symptoms despite Zofran 3. 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 Patient does use marijuana recreationally but denies any alcohol or tobacco use. Past History Travel History Traveled to [place] past 21 day No Medical History Blood Transfusion Hx: No Neurological: NONE EENT: NONE Cardiovascular: NONE Respiratory: obstructive sleep apnea Gastrointestinal: NONE Hepatic: NONE Renal: NONE Musculoskeletal: NONE Psychiatric: NONE Endocrine: NONE Blood Disorders: NONE Cancer(s): NONE TOWEL DISTRIBUTOR/Reproductive: D & C IN 2016 Surgical History Surgical History: gastric sleeve, August 2016 Psychosocial History Where Do You Live? Home Services at Home: None Smoking Status: Never Smoked ETOH Use: denies use Illicit Drug Use: marijuana Functional Ability ADLs Independent: dressing, eating, toileting, bathing. Ambulation: independent IADLs Independent: shopping, housework, finances, food prep, telephone, transportation , medication admin. Review of Systems Review of Systems Constitutional: Reports: see HPI. EENTM: Reports: no symptoms. Cardiovascular: Reports: no symptoms. Respiratory: Reports: no symptoms. GI: Reports: see HPI. Genitourinary: Reports: no symptoms. Musculoskeletal: Reports: no symptoms. Skin: Reports: no symptoms. Exam & Diagnostic Data Vital Signs and I&O Vital Signs Date Time Temp Pulse Resp B/P Pulse O2 O2 Flow FiO2 Ox Delivery Rate 02/06 0644 97.1 62 20 110/64 96 Room Air 02/06 0248 97.7 50 20 104/60 99 Room Air 02/06 0213 53 16 119/69 98 Room Air 02/05 2149 97.0 63 18 120/67 95 Room Air Room Air Intake & Output 02/06 1600 02/06 0400 02/05 1600 02/05 0400 02/04 1600 02/04 0400 Intake Total 400 1100 Output Total Balance 400 1100 Intake, IV 400 1100 Patient 247 lb Weight Physical Exam General Appearance: well developed/nourished, no apparent distress, alert, comfortable Head: atraumatic, normal appearance Eyes: Bilateral: normal appearance, EOMI. Ears, Nose, Throat: hearing grossly normal, moist mucus membranes Respiratory: normal breath sounds, chest non-tender, no respiratory distress Cardiovascular: regular rate/rhythm, normal peripheral pulses Gastrointestinal: soft, Mild tenderness to palpation of the epigastric region. Slightly diminished bowel sounds Results Pertinent Lab Results: Laboratory Tests 02/06 02/06 02/06 0620 0211 0105 Chemistry Sodium (137 - 145 mmol/L) 140 Potassium (3.5 - 5.1 mmol/L) 3.8 Chloride (98 - 107 mmol/L) 109 H Carbon Dioxide (22 - 30 mmol/L) 24 Anion Gap (5 - 16) 7 BUN (7 - 17 mg/dL) 8 Creatinine (0.5 - 1.0 mg/dL) 0.5 Estimated GFR (>60 ml/min) > 60 BUN/Creatinine Ratio (7 - 25 %) 16.0 Lactic Acid Cancelled Total Bilirubin (0.2 - 1.3 mg/dL) 2.2 H Direct Bilirubin (< 0.4 mg/dL) 0.9 H AST (14 - 36 U/L) 551 H ALT (9 - 52 U/L) 457 H Alkaline Phosphatase (<127 U/L) 129 H Total Protein (6.3 - 8.2 g/dL) 5.8 L Albumin (3.5 - 5.0 g/dL) 3.2 L Coagulation PT (9.4 - 12.5 SEC) 12.2 Cancelled INR (0.90 - 1.19) 1.16 Cancelled Hematology CBC w Diff NO MAN DIFF REQ WBC (4.8 - 10.8 /CUMM) 7.8 RBC (4.20 - 5.40 /CUMM) 3.92 L Hgb (12.0 - 16.0 G/DL) 12.3 Hct (37 - 47 %) 36.6 L MCV (81.0 - 99.0 FL) 93.4 MCH (27.0 - 31.0 PG) 31.4 H RDW (11.5 - 14.5 %) 13.4 Plt Count (/CUMM) MPV (7.4 - 10.4 FL) 10.8 H Gran % (42.2 - 75.2 %) 63.6 Lymphocytes % (20.5 - 51.1 %) 30.4 Monocytes % (1.7 - 9.3 %) 5.3 Eosinophils % (0 - 5 %) 0.4 Basophils % (0.0 - 2.0 %) 0.3 Absolute Granulocytes (1.4 - 6.5 /CUMM) 4.9 Absolute Lymphocytes (1.2 - 3.4 /CUMM) 2.4 Absolute Monocytes (0.10 - 0.60 /CUMM) 0.4 Absolute Eosinophils (0.0 - 0.7 /CUMM) 0 Absolute Basophils (0.0 - 0.2 /CUMM) 0 PUBS MCHC (33.0 - 37.0 G/DL) 33.5 02/06 02/05 0035 2242 Chemistry Sodium (137 - 145 mmol/L) 143 Potassium (3.5 - 5.1 mmol/L) 3.5 Chloride (98 - 107 mmol/L) 109 H Carbon Dioxide (22 - 30 mmol/L) 26 Anion Gap (5 - 16) 9 BUN (7 - 17 mg/dL) 10 Creatinine (0.5 - 1.0 mg/dL) 0.5 Estimated GFR (>60 ml/min) > 60 BUN/Creatinine Ratio (7 - 25 %) 20.0 Glucose (65 - 99 mg/dL) 100 H Lactic Acid (0.7 - 2.1 mmol/L) 1.0 Calcium (8.4 - 10.2 mg/dL) 9.4 Total Bilirubin (0.2 - 1.3 mg/dL) 2.1 H Direct Bilirubin (< 0.4 mg/dL) 1.3 H AST (14 - 36 U/L) 788 H ALT (9 - 52 U/L) 462 H Alkaline Phosphatase (<127 U/L) 145 H Total Protein (6.3 - 8.2 g/dL) 6.4 Albumin (3.5 - 5.0 g/dL) 3.7 Globulin (1.9 - 4.2 gm/dL) 2.7 Albumin/Globulin Ratio (1.1 - 2.2 %) 1.4 Amylase (30 - 110 U/L) 45 Lipase (23 - 300 U/L) 66 Total Beta HCG (NEGATIVE) NEGATIVE Hematology CBC w Diff NO MAN DIFF REQ WBC (4.8 - 10.8 /CUMM) 7.8 RBC (4.20 - 5.40 /CUMM) 4.11 L Hgb (12.0 - 16.0 G/DL) 12.8 Hct (37 - 47 %) 38.3 MCV (81.0 - 99.0 FL) 93.2 MCH (27.0 - 31.0 PG) 31.2 H RDW (11.5 - 14.5 %) 13.5 Plt Count (130 - 400 /CUMM) 229 MPV (7.4 - 10.4 FL) 9.3 Gran % (42.2 - 75.2 %) 83.6 H Lymphocytes % (20.5 - 51.1 %) 8.9 L Monocytes % (1.7 - 9.3 %) 7.3 Eosinophils % (0 - 5 %) 0.1 Basophils % (0.0 - 2.0 %) 0.1 Absolute Granulocytes (1.4 - 6.5 /CUMM) 6.6 H Absolute Lymphocytes (1.2 - 3.4 /CUMM) 0.7 L Absolute Monocytes (0.10 - 0.60 /CUMM) 0.6 Absolute Eosinophils (0.0 - 0.7 /CUMM) 0 Absolute Basophils (0.0 - 0.2 /CUMM) 0 PUBS MCHC (33.0 - 37.0 G/DL) 33.5 Toxicology Urine Opiates Screen (>2000 NG/ML) > 4000.00 H Methadone Screen (>300 NG/ML) < 40 Barbiturate Screen (>200 NG/ML) < 60 Ur Phencyclidine Scrn (>25 NG/ML) < 6.00 Amphetamines Screen (>1000 NG/ML) < 100 U Benzodiazepines Scrn (>200 NG/ML) < 85 Urine Cocaine Screen (>300 NG/ML) < 50 Urine Cannabis Screen (>50 NG/ML) 75.70 H Serum Alcohol (<10 MG/DL) < 10.0 Urines Urine Color (YEL,AMB,STR) YEL Urine Clarity (CLEAR) CLEAR Urine pH (5.0 - 8.0) 6.0 Ur Specific [place] (1.001 - 1.035) >= 1.030 Urine Protein (NEG,<30 MG/DL) TRACE H Urine Ketones (NEG) NEG Urine Nitrite (NEG) POS H Urine Bilirubin (NEG) POS@ICTO H Urine Urobilinogen (0.1 - 1.0 EU/dl) 4.0 H Ur Leukocyte Esterase (NEG) NEG Ur Microscopic SEDIMENT EXAMINED Urine WBC (0 - 2 /HPF) RARE Ur Epithelial Cells (NONE,FEW) FEW Urine Bacteria (NEG/NONE) MOD H Urine Hemoglobin (NEG) NEG Urine Glucose (N MG/DL) NEG Imaging/Other Studies: CT abdomen pelvis without IV contrast: LIVER, GALLBLADDER, AND BILIARY TREE: The liver is normal in size, shape, and attenuation. No focal hepatic lesion or biliary ductal dilatation is present. The gallbladder is unremarkable with no evidence of radiopaque gallstones, gallbladder wall thickening, or obvious pericholecystic inflammatory changes. PANCREAS: Unremarkable. SPLEEN: Unremarkable. ADRENAL GLANDS: Unremarkable. KIDNEYS AND URETERS: The kidneys are normal in size, shape, and attenuation. No hydronephrosis, hydroureter, or calculi seen. No perinephric stranding. BLADDER: Unremarkable. GASTROINTESTINAL TRACT: Status post gastric surgery. No acute change of the bowel. No bowel wall thickening. No bowel obstruction. Moderate volume of stool throughout the colon. The appendix is normal. Small bowel loops are unremarkable. ABDOMINAL WALL: No significant hernia is appreciated. LYMPH NODES: Normal. VASCULAR: Unremarkable. PELVIC VISCERA: Uterus is anteverted. No adnexal abnormality. OSSEOUS STRUCTURES: Unremarkable. IMPRESSION: No acute abnormality CT scan abdomen and pelvis. Assessment/Plan Assessment/Recommendations: 26-year-old lady with a PMH of FREDY on nocturnal CPAP (11 mmHg), metrorrhagia s/p D&C via hysteroscopy on 01/15/2016, morbid obesity s/p gastric sleeve on 09/05/2016 who was admitted with complaints of stabbing/pressure epigastric abdominal pain and multiple episodes of nonbloody vomitus, exacerbated with laying supine or walking. Symptoms occasionally associated with postprandial exacerbation. She has been on pantoprazole intermittently since gastric surgery. Over the past couple months she was evaluated at [facility] with similar complaints and negative workup. VS on admission: BP 120/67, HR 63, RR 18, SPO2 95% on RA, T 97.0 Pertinent labs: CBC 7.8, H&H 12.8/30.3, platelets 220 BUN/Cr 26/9 INR: 1.16 AST/ALT: 788/462 Alkaline phosphatase: 145 T bili: 2.1 Direct bili:1.3 Urine tox: > 4000 opiates, cannabis 75.70 Problem list: 1. Transaminitis 2. Elevated bilirubin 3. Abdominal pain Recommendations: * Despite negative findings on CT abdomen and pelvis patient is presenting with elevated LFTs, alkaline phosphatase, bilirubin and normal lipase. Current findings in line with biliary obstruction. This could also be a complication s/ p gastric sleeve * Recommend obtaining MRCP to better assess biliary tree * If any evidence of obstruction, patient will likely benefit from ERCP * Keep patient NPO, continue fluid hydration Consult Acknowledgment - Thank you for your consult request. KATEY URENA MD 02/06/17 8958: General Information and HPI Allergies/Medications Allergies: Coded Allergies: Iodinated Contrast Media - Oral and (UNKNOWN 02/10/17) Home Med List: Ondansetron (Zofran Odt) 4 MG TAB.RAPDIS 1 TAB SL TID PRN NAUSEA Oxycodone HCl/Acetaminophen (Percocet 5-325 MG Tablet) 5 MG-325 MG TABLET 1 TAB PO Q6P PRN PAIN SCALE 1-5 please take 1 pill for mild pain 1-5 pain scale and 2 pills for severe pain. Pantoprazole Sodium (Protonix) 40 MG TABLET.DR 1 TAB PO DAILY STOMACH PAIN Current Medications: Current Medications Sig/Jimmy Start time Last Medication Dose Route Stop Time Status Admin Acetaminophen 1,000 MG Q6P PRN 02/06 0200 AC IV Ampicillin Sodium/ 3,000 MG Q6H 02/06 0800 AC 02/06 Sulbactam Sodium IV 0854 Sodium Chloride 100 ML Ampicillin Sodium/ 0 .STK-MED ONE 02/06 0218 DC Sulbactam Sodium .ROUTE Ampicillin Sodium/ 3,000 MG Q6 02/06 0203 DC 02/06 Sulbactam Sodium IV 0222 Sodium Chloride 100 ML Bisacodyl 5 MG DAILY PRN 02/06 1400 UNVr PO Diphenhydramine HCl 25 MG Q6P PRN 02/06 0200 AC IV Enoxaparin Sodium 40 MG DAILY 02/06 1000 AC 02/06 SC 0853 Hydromorphone HCl 0.5 MG Q4P PRN 02/06 0200 AC 02/06 IV 1241 Ondansetron HCl 0 .STK-MED ONE 02/06 0218 DC .ROUTE Ondansetron HCl 4 MG Q6P PRN 02/06 0200 AC 02/06 IV 1236 Pantoprazole Sodium 40 MG Q12 02/06 1000 DC 02/06 IV 0853 Polyethylene Glycol 17 GM DAILY PRN 02/06 1400 UNVr PO Potassium Chloride 10 MEQ Q1H 02/06 0815 DC 02/06 IV 02/06 0916 1057 Senna/Docusate Sodium 2 TAB DAILY PRN 02/06 1400 UNVr PO Sodium Chloride 1,000 ML Q10H 02/06 0215 AC 02/06 IV 0222 Attending MD Review Statement Attending Statement Attending MD Statement: examined this patient, discuss w/resident/PA/CORPORATE LEGAL ASSISTANT, agreed w/resident/PA/CORPORATE LEGAL ASSISTANT Attending Assessment/Plan: Assessment: is a 26-year-old obese female who presents with symptoms of biliary colic and what appears to be a passed gallstone. She is markedly improved from when she first presented, but she is still complaining of some right upper quadrant discomfort. She is currently without evidence of cholangitis though as she is without any fevers or a significantly elevated white blood cell count so while an ERCP may ultimately be necessary it isn't urgent. As her LFTs are moderately elevated and have stayed persistently elevated it is possible she may have a retained gallstone which wouldn't require any ERCP to remove it so would recommend obtaining an MRCP first to evaluate for this. While her bilirubin has stayed mildly elevated her transaminases and alkaline phosphatase have both minimally improved so as she is clinically improving and I'm hopeful that she may have passed a stone and an ERCP would not be necessary in that case. Recommendations: 1. Keep nothing by mouth for now. 2. Follow daily LFTs. 3. Notify GI for signs of cholangitis such as a high fevers or hypotension. 4. Follow-up MRCP. 5. Continue IV antibiotics for now. 6. Obtain a surgical consult for a cholecystectomy. 7. If the MRCP is positive for choledocholithiasis we'll arrange for an ERCP later today, and if it is negative would then recommend proceeding with cholecystectomy with the timing at the discretion of the surgical team. I will continue to follow this patient and further recommendations based on her clinical course and results of repeat LFTs and imaging. Exam & Diagnostic Data Vital Signs and I&O Vital Signs Date Time Temp Pulse Resp B/P Pulse O2 O2 Flow FiO2 Ox Delivery Rate 02/06 0644 97.1 62 20 110/64 96 Room Air 02/06 0248 97.7 50 20 104/60 99 Room Air 02/06 0213 53 16 119/69 98 Room Air 02/05 2149 97.0 63 18 120/67 95 Room Air Room Air Intake & Output 02/06 1600 02/06 0400 02/05 1600 02/05 0400 02/04 1600 02/04 0400 Intake Total 400 1100 Output Total Balance 400 1100 Intake, IV 400 1100 Patient 247 lb Weight Assessment/Plan Consult Acknowledgment - Thank you for your consult request.
--- NOTE | 2017-02-06 13:26 | PN- Att Addend ---
Attending Addendum Attending Brief Note Patient seen and examined. Lying in bed does not appear to be in acute distress. Denies nausea vomiting. Complains of diffuse abdominal discomfort. She is afebrile and hemodynamically stable. Vital Signs Date Time Temp Pulse Resp B/P Pulse O2 O2 Flow FiO2 Ox Delivery Rate 02/06 0644 97.1 62 20 110/64 96 Room Air 02/06 0248 97.7 50 20 104/60 99 Room Air 02/06 0213 53 16 119/69 98 Room Air 02/05 2149 97.0 63 18 120/67 95 Room Air Room Air Gen. appearance: Obese, not in acute distress Heart: S1-S2 regular Abdomen: Obese, soft, right upper quadrant tenderness, normal bowel sounds. Lungs: Good entry bilaterally, clear to auscultation Extremities: No pedal edema Skin: Intact with no rashes Laboratory Tests 02/06/17 06: Anion Gap 7, Estimated GFR > 60, BUN/Creatinine Ratio 16.0, Total Bilirubin 2.2 H, Direct Bilirubin 0.9 H, AST 551 H, ALT 457 H, Alkaline Phosphatase 129 H, Total Protein 5.8 L, Albumin 3.2 L, PT 12.2, INR 1.16, CBC w Diff NO MAN DIFF REQ, RBC 3.92 L, MCV 93.4, MCH 31.4 H, RDW 13.4, MPV 10.8 H, Gran % 63.6, Lymphocytes % 30.4, Monocytes % 5.3, Eosinophils % 0.4, Basophils % 0.3, Absolute Granulocytes 4.9, Absolute Lymphocytes 2.4, Absolute Monocytes 0.4, Absolute Eosinophils 0, Absolute Basophils 0, PUBS MCHC 33.5, Hepatitis A IgM Ab Pending, Hep Bs Antigen NONREACTIVE, Hep B Core IgM Ab Conf Pending, Hepatitis C Antibody Pending 02/06/17 0211: PT Cancelled, INR Cancelled 02/06/17 0105: Lactic Acid Cancelled 02/06/17 0035: Urine Opiates Screen > 4000.00 H, Methadone Screen < 40, Barbiturate Screen < 60, Ur Phencyclidine Scrn < 6.00, Amphetamines Screen < 100, U Benzodiazepines Scrn < 85, Urine Cocaine Screen < 50, Urine Cannabis Screen 75.70 H, Urine Color YEL, Urine Clarity CLEAR, Urine pH 6.0, Ur Specific [place] >= 1.030, Urine Protein TRACE H, Urine Ketones NEG, Urine Nitrite POS H, Urine Bilirubin POS@ICTO H, Urine Urobilinogen 4.0 H, Ur Leukocyte Esterase NEG, Ur Microscopic SEDIMENT EXAMINED, Urine WBC RARE, Ur Epithelial Cells FEW, Urine Bacteria MOD H, Urine Hemoglobin NEG, Urine Glucose NEG 02/05/17 2242: Anion Gap 9, Estimated GFR > 60, BUN/Creatinine Ratio 20.0, Glucose 100 H, Lactic Acid 1.0, Calcium 9.4, Total Bilirubin 2.1 H, Direct Bilirubin 1.3 H, AST 788 H, ALT 462 H, Alkaline Phosphatase 145 H, Total Protein 6.4, Albumin 3.7, Globulin 2.7, Albumin/Globulin Ratio 1.4, Amylase 45, Lipase 66, Total Beta HCG NEGATIVE, CBC w Diff NO MAN DIFF REQ, RBC 4.11 L, MCV 93.2, MCH 31.2 H, RDW 13.5, MPV 9.3, Gran % 83.6 H, Lymphocytes % 8.9 L, Monocytes % 7.3, Eosinophils % 0.1, Basophils % 0.1, Absolute Granulocytes 6.6 H, Absolute Lymphocytes 0.7 L, Absolute Monocytes 0.6, Absolute Eosinophils 0, Absolute Basophils 0, PUBS MCHC 33.5, Serum Alcohol < 10.0 Problems: 1. Abdominal pain with transaminitis 2. Obstructive sleep apnea Plan: -Laboratory data is suggestive of biliary obstruction. However this is not evident on CT scan. -Obtain MRCP as recommended by the endocrinology service -Provide antiemetic therapy as needed. Continue pain control with Dilaudid. Provide bowel regimen. -She was started empirically on Unasyn for possible cholecystitis. She has no evidence of an infectious process other than ellevated LFTs. Continue for now until results of MRCP obtained. -Check viral hepatitis panel. Patient is not on medications that can cause transaminitis at home. She was on PPI therapy but this was discontinued in the past. -Obtain records of any previous hospitalizations. -CPAP therapy at night.
--- NOTE | 2017-02-06 14:18 | ULTRASOUND REPORT ---
EXAMINATION: US ABDOMEN LIMITED CLINICAL INFORMATION: Right upper quadrant pain and elevated liver function tests.. COMPARISON: CT abdomen and pelvis from 02/05/2017 TECHNIQUE: Real-time imaging of the right upper quadrant abdominal viscera. FINDINGS: PANCREAS: The pancreas is partially obscured by bowel gas. The visualized portions of the pancreatic head, neck and body are normal. LIVER: Normal. The liver demonstrates normal size, contour and echogenicity. No focal lesion or intrahepatic biliary duct dilatation. GALLBLADDER: The gallbladder is moderately distended and has normal wall thickness. No gallbladder wall edema or pericholecystic fluid. Multiple small calculi are present within the gallbladder. The seating and mobility technologist reports that patient had tenderness over the region of the gallbladder. COMMON BILE DUCT: Normal in caliber measuring 0.4 cm in diameter. There are no stones identified in the visualized portion of the duct. RIGHT KIDNEY: Normal. No hydronephrosis. No renal calculi or focal parenchymal lesions. The kidney measures 11.3 cm in maximum dimension. FREE FLUID: None. IMPRESSION: Cholelithiasis and pain over the region of the gallbladder. However, no gallbladder wall edema or pericholecystic fluid. Given the presence of pain, the possibility of early onset cholecystitis would be considered. Also, pain could be caused by biliary colic. Recommend further correlation to determine whether patient develops a convincing Green's sign. Otherwise, unremarkable exam.
--- NOTE | 2017-02-06 15:02 | Event Note ---
See Addendum Event Note Event Note: Resuults of abdominal Usg noted, significant for Cholelithiasis. Patient might need cholecystectomy, conslt placed with general surgery ( Dr. Flores). Patient will be kept NPO tonight if they plan for surgery in a.m.
--- NOTE | 2017-02-06 15:07 | MRI REPORT ---
EXAMINATION: MR ABDOMEN WITHOUT CONTRAST CLINICAL INFORMATION: 26-year-old female with right upper quadrant pain and elevated liver function tests. Evaluate for common duct stone. COMPARISON: CT of abdomen and pelvis, 02/05/2017. Ultrasound of abdomen, 02/06/2017. TECHNIQUE: Imaging of the abdomen was performed on a high-field 1.5 Laura magnet using standard cholangiopancreatography protocol. FINDINGS: Lung bases are normal. Liver has normal size, contour and parenchymal signal intensity. No suspicious hepatic lesion or intrahepatic bile duct dilatation. Gallbladder is moderately distended and contains multiple small calculi. The stones measure 2-3 mm in size. No gallbladder wall edema or pericholecystic fluid. The common bile duct measures up to 0.5 cm diameter and there is no evidence of common duct stricture or choledocholithiasis. Pancreas, spleen, adrenal glands, kidneys, aorta and inferior vena cava are unremarkable. No pathologic sized periportal, mesenteric or retroperitoneal lymph nodes. The stomach and visualized bowel are normal in caliber. No inflammation within the mesentery. No ascites. Abdominal wall is unremarkable. The visualized bones have normal marrow signal intensity. IMPRESSION: Cholelithiasis without imaging evidence of acute cholecystitis or choledocholithiasis.
--- NOTE | 2017-02-06 15:29 | Event Note ---
Event Note Event Note: Diet advanced to Clear liquid. MRCP negative for any Choledocholithiasis. Patient will need cholecystectomy once her LFTs trend down. Dr. Esparza and Dr Bob Brasher in agreement with the plan.
[2017-02-06 22:43] VITALS: BP 110/60
[2017-02-07 07:08] VITALS: BP 108/58
--- NOTE | 2017-02-07 07:33 | PN- Housestaff ---
Subjective Follow-up For: A acute cholecystitis versus choledocholithiasis Bradycardia Nausea Abdominal pain Subjective: Patient is seen and examined. Per discussion with GI and surgery, patient was advanced to clear liquid diet. On ingestion of Jell-O this morning, patient reported stabbing abdominal pain. Dr. Haro was by bedside and recommended her to be nothing by mouth. Patient was given 2 mg IV morphine for pain, later it was noticed that her heart rate dropped to 48, she was hanging around 15. The patient was transferred to telemetry (ICU as Tele hold). Review of Systems Constitutional: Reports: see HPI. Objective Last 24 Hrs of Vital Signs/I&O Vital Signs Date Time Temp Pulse Resp B/P Pulse O2 O2 Flow FiO2 Ox Delivery Rate 02/07 1115 99 Room Air 02/07 1115 97.8 56 20 136/84 99 Room Air 02/07 0708 98.7 49 20 108/58 94 Room Air 02/07 0106 48 94 02/07 0057 52 02/06 2256 48 93 02/06 2243 98.8 61 20 110/60 97 Room Air Intake & Output 02/07 1600 02/07 0800 02/07 0000 Intake Total 800 1250 Output Total Balance 800 1250 Intake, IV 800 800 Intake, Oral 0 450 Patient 111.584 kg Weight Physical Exam General Appearance: Alert, Oriented X3, Cooperative, Mild Distress Skin: No Rashes HEENT: Atraumatic Neck: Supple Cardiovascular: Regular Rate, Normal S1, Normal S2 Lungs: Clear to Auscultation, Normal Air Movement Abdomen: Normal Bowel Sounds, Soft, mild tenderness to deep palpation in epigastric and right upper quadrant area Extremities: No Edema, Normal Pulses Current Medications: Current Medications Sig/Jimmy Start time Last Medication Dose Route Stop Time Status Admin Acetaminophen 1,000 MG Q6P PRN 02/06 0200 DC IV Ampicillin Sodium/ 3,000 MG Q6H 02/06 0800 AC 02/07 Sulbactam Sodium IV 0803 Sodium Chloride 100 ML Bisacodyl 5 MG DAILY PRN 02/06 1400 AC PO Diphenhydramine HCl 25 MG Q6P PRN 02/06 0200 AC IV Enoxaparin Sodium 40 MG DAILY 02/06 1000 AC 02/06 SC 0853 Hydromorphone HCl 0.5 MG Q4P PRN 02/06 0200 AC 02/07 IV 1116 Morphine Sulfate 10 MG .STK-MED ONE 02/07 1103 DC IV 02/07 1104 Morphine Sulfate 2 MG ONCE ONE 02/07 0800 DC 02/07 IV 02/07 0801 0810 Ondansetron HCl 4 MG .STK-MED ONE 02/07 0508 DC IM 02/07 0509 Ondansetron HCl 4 MG Q6P PRN 02/06 0200 AC 02/07 IV 0512 Patient Medication 1 ED .STK-MED ONE 02/07 1409 CO Teaching ED 02/07 1410 Patient Medication 1 ED .STK-MED ONE 02/06 1426 CO Teaching ED 02/06 1427 Polyethylene Glycol 17 GM DAILY PRN 02/06 1400 AC PO Senna/Docusate Sodium 2 TAB DAILY PRN 02/06 1400 AC PO Sodium Chloride 1,000 ML Q10H 02/06 0215 AC 02/07 IV 1208 Last 24 Hrs of Lab/Rory Results Last 24 Hrs of Labs/Mics: Laboratory Tests 02/07/17 0725: Anion Gap 10, Estimated GFR > 60, BUN/Creatinine Ratio 8.3, Total Bilirubin 2.5 H, Direct Bilirubin 0.9 H, AST 134 H, ALT 290 H, Alkaline Phosphatase 123, Total Protein 5.9 L, Albumin 3.2 L, CBC w Diff NO MAN DIFF REQ, RBC 3.89 L, MCV 92.4, MCH 31.1 H, RDW 13.4, MPV 9.9, Gran % 61.7, Lymphocytes % 30.2, Monocytes % 6.9, Eosinophils % 0.8, Basophils % 0.4, Absolute Granulocytes 3.6, Absolute Lymphocytes 1.8, Absolute Monocytes 0.4, Absolute Eosinophils 0, Absolute Basophils 0, PUBS MCHC 33.7 Assessment/Plan Assessment: Patient is a morbidly obese 26 year old woman s/p gastric sleeve 09/05/2016 with medical hx of GERD and obstructive sleep apnea on nocturnal CPAP. She presents with epigastric pain nausea vomiting (nonbilious nonbloody) that started on the morning of admission. She said that she is having epigastric pain and nausea intermittently over 2 months. At the time she called her surgeon who said it was normal postoperatively. She has no personal history of gallstones. Does endorse body aches and chills without fever or diarrhea. At the time of admission she was afebrile, normal heart rate and blood pressure 95% on room air. She had a positive Green sign on examination. Her labs were significant for Total bilirubin is elevated at 2.1. Transaminitis AST 788 ALT 462 ALP 145. Amylase lipase are negative. Imaging done as inpatient CT of the abdomen and pelvis not reveal any acute abnormality. MRCP 02/06/17 Cholelithiasis without imaging evidence of acute cholecystitis or choledocholithiasis. Problem list Transaminitis possible cholecystitis versus choledocholithiasis Nausea Bradycardia Obstructive sleep apnea Transaminitis possible cholecystitis versus choledocholithiasis Patient has abdominal pain 7/10, sharp and stabbing in nature, her LFTs are trending down. Plan is for laparoscopic cholecystectomy once her transaminitis resolves. We will keep her nothing by mouth for possible surgery once the LFTs trend down. Patient will be continued on IV Unasyn Patient does not have any leukocytosis or fever will continue to monitor Gastroenterology service and general surgery service on board will follow their recs Bradycardia Patient reports that morphine decreases her heart rate. This morning when she was given morphine her heart rate dropped to 48 from 56. She is transferred to telemetry for continuous monitoring Obstructive sleep apnea Continue the use of CPAP at night Nausea Zofran when necessary as needed DVT prophylaxis subcutaneous heparin Full code Problem List: 1. Abdominal pain 2. Elevated bilirubin Pain Ratin Pain Location: Epigastric region Pain Goal: Pain 4 or less Pain Plan: Tylenol/Dilaudid for pain Tomorrow's Labs & Rationales: cbc bep lft
[2017-02-07 08:40] LABS: ABSOLUTE BASOPHIL COUNT 0 /CUMM (0.0-0.2); ABSOLUTE EOSINOPHIL COUNT 0 /CUMM (0.0-0.7); ABSOLUTE GRANULOCYTE CT 3.6 /CUMM (1.4-6.5); ABSOLUTE LYMPH COUNT 1.8 /CUMM (1.2-3.4); ABSOLUTE MONOCYTE COUNT 0.4 /CUMM (0.10-0.60); BASOPHIL % 0.4 % (0.0-2.0); EOSINOPHIL % 0.8 % (0-5); GRANULOCYTE % 61.7 % (42.2-75.2); HEMATOCRIT 35.9 % (37-47); MEAN CORPUSCULAR HGB 31.1 PG (27.0-31.0); MEAN CORPUSCULAR HGB CONC 33.7 G/DL (33.0-37.0); MEAN CORPUSCULAR VOLUME 92.4 FL (81.0-99.0); MEAN PLATELET VOLUME 9.9 FL (7.4-10.4); PLATELET COUNT 199 /CUMM (130-400); RBC DISTRIBUTION WIDTH 13.4 % (11.5-14.5); RED BLOOD CELL CT 3.89 /CUMM (4.20-5.40); WHITE BLOOD CELL COUNT 5.9 /CUMM (4.8-10.8)
--- NOTE | 2017-02-07 09:11 | Cons- General Surgery ---
General Information and HPI Consulting Request Date of Consult: 02/06/17 Requested By: PAULA MCNALLY M.D History of Present Illness: CC: abdominal pain HPI:26-year-old nondiabetic nonsmoker who is had a gastric sleeve in the past for weight control, presented to the medical service yesterday with severe constant nonradiating focal mid subxiphoid epigastric pain attends a little to the right side as well but not the left no dysuria or some associated nausea but no significant vomiting, this discomfort is not worse with activity no relation to certain foods like (ie. fried or cheese) relieved by IV Dilaudid, no significant diarrhea no fevers but she has noticed a particular darkening of urine (ie iced tea), no FHx of gallbladder problems. Otherwise no changes bowel habits, weight or appetite. I've reviewed the [facility]. There is a family history of heart disease, surgical history includes gastric sleeve. There is a history of GERD, on medications for stable, but no history of PUD, bleeding problems, heart disease or issues with anesthesia. Allergies/Medications Allergies: Uncoded Allergies: IODINE IV CONTRAST (02/05/17) Home Med List: Ondansetron (Zofran Odt) 4 MG TAB.RAPDIS 1 TAB SL TID PRN NAUSEA Pantoprazole Sodium (Protonix) 40 MG TABLET.DR 1 TAB PO DAILY STOMACH PAIN Current Medications: I reviewed Current Medications Sig/Jimmy Start time Last Medication Dose Route Stop Time Status Admin Acetaminophen 1,000 MG Q6P PRN 02/06 0200 AC IV Ampicillin Sodium/ 3,000 MG Q6H 02/06 0800 AC 02/07 Sulbactam Sodium IV 0803 Sodium Chloride 100 ML Bisacodyl 5 MG DAILY PRN 02/06 1400 AC PO Diphenhydramine HCl 25 MG Q6P PRN 02/06 0200 AC IV Enoxaparin Sodium 40 MG DAILY 02/06 1000 AC 02/06 SC 0853 Hydromorphone HCl 0.5 MG Q4P PRN 02/06 0200 AC 02/07 IV 0512 Morphine Sulfate 2 MG ONCE ONE 02/07 0800 DC 02/07 IV 02/07 0801 0810 Ondansetron HCl 4 MG Q6P PRN 02/06 0200 AC 02/07 IV 0512 Pantoprazole Sodium 40 MG Q12 02/06 1000 DC 02/06 IV 0853 Patient Medication 1 ED .STK-MED ONE 02/06 1426 [facility] Teaching ED 02/06 1427 Polyethylene Glycol 17 GM DAILY PRN 02/06 1400 AC PO Potassium Chloride 10 MEQ Q1H 02/06 0815 DC 02/06 IV 02/06 0916 1057 Senna/Docusate Sodium 2 TAB DAILY PRN 02/06 1400 AC PO Sodium Chloride 1,000 ML Q10H 02/06 0215 AC 02/06 IV 2142 Past History Medical History Blood Transfusion Hx: No Neurological: NONE EENT: NONE Cardiovascular: NONE Respiratory: obstructive sleep apnea Gastrointestinal: NONE Hepatic: NONE Renal: NONE Musculoskeletal: NONE Psychiatric: NONE Endocrine: NONE Blood Disorders: NONE Cancer(s): NONE JOINTER SUBMARINE CABLE/Reproductive: D & C IN 2015 Surgical History Pertinent Surgical History: gastric sleeve, August 2016 Psychosocial History Where Do You Live? Home Services at Home: None Smoking Status: Never Smoked ETOH Use: denies use Illicit Drug Use: marijuana Functional Ability ADLs Independent: dressing, eating, toileting, bathing. Ambulation: independent IADLs Independent: shopping, housework, finances, food prep, telephone, transportation , medication admin. Review of Systems Review of Systems: Constitutional: No fever, sweats or weight loss ENMT: No sore throat Cardiovascular: No chest pain, palpitations or leg swelling Respiratory: No shortness of breath, cough, or sputum or dyspnea on exertion GI: No GERD or bleeding per rectum : No dysuria or hematuria Musculoskeletal: No new muscle weakness, bone or joint pain Skin / Breast: No jaundice, rashes or itching Psychiatric: No history of drug or alcohol abuse no depression or anxiety Hematologic / lymphatic system: No problems with excessive bleeding, bruising, or blood clots Exam & Diagnostic Data Vital Signs and I&O I reviewed Vital Signs Date Time Temp Pulse Resp B/P Pulse O2 O2 Flow FiO2 Ox Delivery Rate 02/07 0708 98.7 49 20 108/58 94 Room Air 02/07 0106 48 94 02/07 0057 52 02/06 2256 48 93 02/06 2243 98.8 61 20 110/60 97 Room Air I reviewed Intake & Output 02/07 1600 02/07 0800 02/07 0000 02/06 1600 02/06 0800 02/06 0000 Intake Total 800 1250 313 360 0017 Output Total Balance 800 1250 222 313 0166 Intake, IV 800 820 568 5037 Intake, Oral 0 450 120 Patient 247 lb Weight Physical Exam: Constitutional: pleasant, no acute distress, conversant Eyes: sclera anicteric ENMT: ears and nose atraumatic, moist mucous membranes, good dentition, no lip lesions Neck: Supple, trachea is midline, no cervical or supraclavicular adenopathy and no palpable thyromegaly Cardiovascular: S1, S2, no murmurs, no peripheral edema Respiratory: clear to auscultation with normal respiratory effort and no intercostal retractions GI: abdomen soft, mid subxiphoid focal tenderness no rebound, nondistended, no palpable hepatosplenomegaly Extremities / lymphatics: symmetrically warm, free range of motion no peripheral edema, no cervical, supraclavicular, axillary, or inguinal adenopathy Musculoskeletal: Did not evaluate gait and station, no digital cyanosis, good muscle strength and tone no atrophy, motor grossly 5 out of 5 throughout Skin: no jaundice, no rashes warm, nondiaphoretic, no areas of erythema or induration Psychiatric: mood and affect are appropriate and alert and oriented to person place and time Last 24 Hours of Labs: I reviewed Laboratory Tests 02/07 0725 Chemistry Sodium Pending Potassium Pending Chloride Pending Carbon Dioxide Pending Anion Gap Pending BUN Pending Creatinine Pending BUN/Creatinine Ratio Pending Total Bilirubin Pending Direct Bilirubin Pending AST Pending ALT Pending Alkaline Phosphatase Pending Total Protein Pending Albumin Pending Hematology CBC w Diff Pending WBC Pending RBC Pending Hgb Pending Hct Pending MCV Pending MCH Pending RDW Pending Plt Count Pending MPV Pending PUBS MCHC Pending Bilirubin is 2.2 yesterday 2.1 direct is 1.5 AST over 700 initially came down to 500 today in the ALT has remained in the mid 400s, white blood cell count normal Assessment/Plan Assessment/Plan Studies I reviewed to 3 on [address]ACS myself the CT and ultrasound from yesterday showing no inflammatory changes at the gallbladder there are stones present MRCP from today shows no obvious choledocholithiasis you can see the cystic duct My impression is symptomatic gallstones. The story is not typical in that there is no family history and rich fried fatty foods and is not an issue. The current standard of care is removal of the gallbladder laparoscopically, preferably not emergently. Once they become symptomatic, gallstones can lead to complications such as cholecystitis, pancreatitis and cholangitis and rarely others, her story however does have hints of choledocholithiasis despite the negative MRCP earlier today, she still has pain and her LFTs are still elevated and she probably does not have acute cholecystitis. There is a risk of developing cholangitis which is yet she does not have. At this point we'll monitor physical exam her urine color and repeat LFTs in the morning, keep her npo, if her pain improves and the LFTs improve we will then proceed with laparoscopic cholecystectomy if however the pain persisted especially if the LFTs remain elevated we'll have to have GI reevaluate her for possible ERCP. I explained to her that often these stones pass and maybe which she's feeling is pain as a result of some transient edema at the bottom. I explained the nature and possibility of retained stones, and rarely, persistent postoperative diarrhea. I illustrated how the stones cause problems and how the anatomy and inflammation can make the surgery more difficult, sometimes requiring an open procedure, and rarely to repair a bile duct injury leading to significant morbidity and even mortality. This in our practice is exceedingly rare, but other more common risks were also discussed such as infection, injury to other surrounding structures such as bowel and blood vessels. We also discussed the potential risks, benefits and alternatives to the procedure and surgery in general, issues that included but were not limited to, anesthetic risks hemorrhage requiring transfusion, the risk of transfusion itself, infection, heart attack, stroke, . Problem List: 1. Choledocholithiasis 2. Elevated bilirubin 3. Transaminitis 4. Abdominal pain Consult Acknowledgment - Thank you for your consult request.
[2017-02-07 11:15] VITALS: BP 136/84
[2017-02-07 16:00] VITALS: BP 120/60
--- NOTE | 2017-02-07 16:05 | Event Note ---
Event Note Event Note: Patient has been in sinus bradycardia since her admission, her heart rate hanging around 49-56. She was called for OR around 4 PM, I spoke with anesthesiologist and also the general surgeon Dr. Moreno regarding the sinus bradycardia. Patient does not have any prior cardiac history, and does not need any cardiac clearance at this point. Patient is signed out to the ICU team the resident Елена Call and Yessy Parson.
--- NOTE | 2017-02-07 16:35 | PN- Att Addend ---
Attending Addendum Attending Brief Note Patient seen and examined. Plan of care discussed with the medical team and the patient. Available lab work and radiology test reports were reviewed. Patient complains of mild epigastric pain but appears comfortable. When asked she says states that her pain is 7 out of 10. She also reported that her heart rate decreased after getting morphine. Denies any nausea vomiting fever or diarrhea. Vital Signs Date Time Temp Pulse Resp B/P Pulse O2 O2 Flow FiO2 Ox Delivery Rate 02/07 1115 99 Room Air 02/07 1115 97.8 56 20 136/84 99 Room Air 02/07 0708 98.7 49 20 108/58 94 Room Air 02/07 0106 48 94 02/07 0057 52 02/06 2256 48 93 02/06 2243 98.8 61 20 110/60 97 Room Air Intake & Output 02/07 1600 02/07 0800 02/07 0000 Intake Total 800 1250 Output Total Balance 800 1250 Intake, IV 800 800 Intake, Oral 0 450 Patient 246 lb Weight Exam: General: Patient awake alert oriented without any distress Laboratory Tests 02/07 0725 Chemistry Sodium (137 - 145 mmol/L) 138 Potassium (3.5 - 5.1 mmol/L) 3.9 Chloride (98 - 107 mmol/L) 102 Carbon Dioxide (22 - 30 mmol/L) 27 Anion Gap (5 - 16) 10 BUN (7 - 17 mg/dL) 5 L Creatinine (0.5 - 1.0 mg/dL) 0.6 Estimated GFR (>60 ml/min) > 60 BUN/Creatinine Ratio (7 - 25 %) 8.3 Total Bilirubin (0.2 - 1.3 mg/dL) 2.5 H Direct Bilirubin (< 0.4 mg/dL) 0.9 H AST (14 - 36 U/L) 134 H ALT (9 - 52 U/L) 290 H Alkaline Phosphatase (<127 U/L) 123 Total Protein (6.3 - 8.2 g/dL) 5.9 L Albumin (3.5 - 5.0 g/dL) 3.2 L Hematology CBC w Diff NO MAN DIFF REQ WBC (4.8 - 10.8 /CUMM) 5.9 RBC (4.20 - 5.40 /CUMM) 3.89 L Hgb (12.0 - 16.0 G/DL) 12.1 Hct (37 - 47 %) 35.9 L MCV (81.0 - 99.0 FL) 92.4 MCH (27.0 - 31.0 PG) 31.1 H RDW (11.5 - 14.5 %) 13.4 Plt Count (130 - 400 /CUMM) 199 MPV (7.4 - 10.4 FL) 9.9 Gran % (42.2 - 75.2 %) 61.7 Lymphocytes % (20.5 - 51.1 %) 30.2 Monocytes % (1.7 - 9.3 %) 6.9 Eosinophils % (0 - 5 %) 0.8 Basophils % (0.0 - 2.0 %) 0.4 Absolute Granulocytes (1.4 - 6.5 /CUMM) 3.6 Absolute Lymphocytes (1.2 - 3.4 /CUMM) 1.8 Absolute Monocytes (0.10 - 0.60 /CUMM) 0.4 Absolute Eosinophils (0.0 - 0.7 /CUMM) 0 Absolute Basophils (0.0 - 0.2 /CUMM) 0 PUBS MCHC (33.0 - 37.0 G/DL) 33.7 CVS: S1 plus S2 without any murmur or gallops Chest: Few scattered crepitation without any wheeze. There is no respiratory distress. 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 However, no gallbladder wall edema or pericholecystic fluid. Given the presence of pain, the possibility of early onset cholecystitis would be considered. Also, pain could be caused by biliary colic. Recommend further correlation to determine whether patient develops a convincing Green's sign. Otherwise, unremarkable exam. MRCP: Cholelithiasis without imaging evidence of acute cholecystitis or choledocholithiasis. Assessment * Acute cholecystitis without evidence of coronary the cholelithiasis * Persistent epigastric pain * Bradycardia likely sinus- patient does not have any prior cardiac history * History bariatric surgery with gastric sleeve * Elevated bilirubin * Transaminitis gradually improving Plan * We'll plan to move to telemetry given the degree of bradycardia. Patient has no persistent bradycardic which I think is underlying sinus bradycardia and is unlikely to be from morphine. * Patient likely going for cholecystectomy * Change pain medicine- is continue morphine and use Dilaudid with increased dose 0.8 mg every 4 hours when necessary IV.
--- NOTE | 2017-02-07 22:57 | PN- General Surgery ---
Subjective Subjective: POD #0 s/p Lap Dana Patient tolerated the procedure well was returned back to the ICU in stable condition. She continues to be telemetry hold due to bradycardia, which is stable with a heart rate in the high 50s to low 60s at this time. Patient is very tired. She denies significant pain or nausea. She's had nothing to drink as of yet. Awaiting void. Objective Vital Signs and I&Os Vital Signs Date Time Temp Pulse Resp B/P Pulse O2 O2 Flow FiO2 Ox Delivery Rate 02/07 1115 99 Room Air 02/07 1115 97.8 56 20 136/84 99 Room Air 02/07 0708 98.7 49 20 108/58 94 Room Air 02/07 0106 48 94 02/07 0057 52 02/06 2256 48 93 Intake & Output 02/07 1600 02/07 0800 02/07 0000 02/06 1600 02/06 0800 02/06 0000 Intake Total 639 407 1397 841 330 9499 Output Total 500 Balance -051 459 5961 909 653 3439 Intake, IV 250 800 121 437 8395 Intake, Oral 0 0 450 120 Number 0 Bowel Movements Output, Urine 500 Patient 246 lb 247 lb Weight Physical Exam: Gen.: Patient is sleeping, but arousable to loud voice. She appears very groggy when verbalizing, which she chooses to minimally. Cardiac: Regular Pulmonary: Clear Abdomen: Abdominal dressings are clean, dry, and intact. No drainage or erythema noted. There is mild tammi-incisional tenderness, as expected. Normal bowel sounds are heard. Assessment/Plan Assessment/Plan Patient is 26-year-old female, who is now postoperative day #0 status post laparoscopic cholecystectomy due to cholecystitis with elevated LFTs, which have been decreasing since admission. There is been no evidence of choledocholithiasis on imaging. She is currently a telemetry hold in ICU due to monitoring for asymptomatic bradycardia. Recommendations: -Okay to advance diet as tolerated. Start with clear liquids tonight if patient is awake enough to try. -IV fluids tonight at 100 ML's per hour. -Okay to resume DVT prophylaxis with Lovenox IV and Alps. -Follow-up labs in the morning, including LFTs. -Okay to discontinue Unasyn. -Medical management per primary team. Heart rate is stable at this time.
[2017-02-08] VITALS: BP 120/80
[2017-02-08 06:40] LABS: ABSOLUTE BASOPHIL COUNT 0 /CUMM (0.0-0.2); ABSOLUTE EOSINOPHIL COUNT 0 /CUMM (0.0-0.7); ABSOLUTE GRANULOCYTE CT 7.8 /CUMM (1.4-6.5); ABSOLUTE LYMPH COUNT 0.9 /CUMM (1.2-3.4); ABSOLUTE MONOCYTE COUNT 0.8 /CUMM (0.10-0.60); BASOPHIL % 0 % (0.0-2.0); EOSINOPHIL % 0.1 % (0-5); HEMATOCRIT 38.9 % (37-47); MEAN CORPUSCULAR HGB 31.1 PG (27.0-31.0); MEAN CORPUSCULAR HGB CONC 33.8 G/DL (33.0-37.0); MEAN PLATELET VOLUME 9.7 FL (7.4-10.4); PLATELET COUNT 236 /CUMM (130-400); RBC DISTRIBUTION WIDTH 12.7 % (11.5-14.5); RED BLOOD CELL CT 4.23 /CUMM (4.20-5.40)
[2017-02-08 06:44] LABS: WHITE BLOOD CELL COUNT 9.5 /CUMM (4.8-10.8)
--- NOTE | 2017-02-08 06:45 | PN- General Surgery ---
See Addendum Subjective Subjective: POD #1 s/p Lap Dana Patient is more awake and alert this morning. She admits to some soreness at the incision sites, but reports resolution of the epigastric pain she was experiencing prior to surgery. She has not had anything to drink as of yet. Denies nausea or vomiting. She admits to some hiccups. She has been out of bed to the bathroom and voided once overnight. Heart rate remained in the 50s overnight. Otherwise denies headache, dizziness, chest pain, shortness of breath. Objective Vital Signs and I&Os Vital Signs Date Time Temp Pulse Resp B/P Pulse O2 O2 Flow FiO2 Ox Delivery Rate 02/08 0000 96 Room Air 02/08 0000 97.6 52 24 120/80 96 Room Air 02/07 1600 97.0 62 26 120/60 96 Room Air Room Air 02/07 1115 99 Room Air 02/07 1115 97.8 56 20 136/84 99 Room Air 02/07 0708 98.7 49 20 108/58 94 Room Air Intake & Output 02/08 0800 02/08 0000 02/07 1600 02/07 0800 02/07 0000 16 1600 Intake Total 2300 897 227 7997 120 Output Total 800 500 Balance 1500 -532 968 0204 120 Intake, IV 2300 250 800 800 Intake, Oral 0 0 0 450 120 Number 0 Bowel Movements Output, Urine 800 500 Patient 246 lb Weight Physical Exam: Gen.: Patient is resting, but easily arousable. No acute distress.. Cardiac: Regular Pulmonary: Clear Abdomen: Abdominal dressings are clean, dry, and intact. No drainage or erythema noted. There is mild tammi-incisional tenderness, as expected. Normal bowel sounds are heard. Extremities: Alps are in place and there is no lower extremity tenderness. Assessment/Plan Assessment/Plan Patient is 26-year-old female, who is now postoperative day #1 status post laparoscopic cholecystectomy due to cholecystitis with elevated LFTs, which have been decreasing since admission. There has been no evidence of choledocholithiasis on imaging. She is currently a telemetry hold in ICU due to monitoring for asymptomatic bradycardia. Recommendations: -Would keep the clear liquids for breakfast since she hasn't tried them yet and has some pickups. If she tolerates, it is okay to advance her diet. -IV fluids can be hep-locked this morning. -Continue DVT prophylaxis with Lovenox IV and Alps. -Follow-up labs this a.m., including LFTs. -No further need for antibiotics from a surgical standpoint. -Medical management per primary team. Heart rate is stable at this time. -As long as patient tolerates her diet, she is cleared for discharge from a surgical standpoint. She understands that this recommendation is pending medical clearance as well.
[2017-02-08 08:00] VITALS: BP 112/70
--- NOTE | 2017-02-08 08:43 | PN- Housestaff ---
Subjective Follow-up For: status post laparoscopic cholecystectomy due to cholecystitis with elevated LFTs , D#1 Bradycardia Nause Abdominal pain Subjective: She seen and examined this morning. She was lying in bed in no acute distress. She status post laproscopic cholecystectomy day 1, she has been starting a clear liquid diet which she has so far take only a couple of sips, complains that her abdomen feels sore, has been reluctant to get out of the bed secondary to pain, no flatus or bowel movements so far. MAXIMUM TEMPERATURE of 99, white count has been stable. She has been reluctant to use Alps. No other complaints of nausea , vomiting, chest pain, palpitation. Review of Systems Constitutional: Denies: chills, fever. Cardiovascular: Denies: chest pain, palpitations. Respiratory: Denies: cough, short of breath, sputum production. Gastrointestinal: Denies: abdominal pain, constipation, diarrhea, nausea, vomiting. Genitourinary: Denies: dysuria, frequency. Objective Last 24 Hrs of Vital Signs/I&O Vital Signs Date Time Temp Pulse Resp B/P Pulse O2 O2 Flow FiO2 Ox Delivery Rate 02/08 0800 99.0 56 20 112/70 96 Room Air 02/08 0000 96 Room Air 02/08 0000 97.6 52 24 120/80 96 Room Air Intake & Output 02/08 1600 02/08 0800 02/08 0000 Intake Total 1280 1000 2300 Output Total 800 Balance 1280 1000 1500 Intake, IV 520 239 9017 Intake, Oral 480 200 0 Number 0 Bowel Movements Output, Urine 800 Physical Exam General Appearance: Alert, Oriented X3, Cooperative, No Acute Distress Cardiovascular: Regular Rate, Normal S1, Normal S2, No Murmurs Lungs: Clear to Auscultation, Normal Air Movement Abdomen: tender to touch, no bowel sounds heard Extremities: No Clubbing, No Cyanosis, No Edema Current Medications: Current Medications Sig/Jimmy Start time Last Medication Dose Route Stop Time Status Admin Ampicillin Sodium/ 3,000 MG Q6H 02/06 08 DC 02/07 Sulbactam Sodium IV 1502 Sodium Chloride 100 ML Bisacodyl 5 MG DAILY PRN 02/07 1915 AC PO Bisacodyl 5 MG DAILY PRN 02/06 1400 DC PO Diphenhydramine HCl 25 MG Q6P PRN 02/07 1915 AC IV Diphenhydramine HCl 25 MG Q6P PRN 02/06 0200 DC IV Enoxaparin Sodium 40 MG DAILY 02/08 1000 AC 02/08 SC 0853 Enoxaparin Sodium 40 MG DAILY 02/06 1000 DC 02/06 SC 0853 Hydromorphone HCl 0.8 MG Q4P PRN 02/07 191 AC 02/08 IV 1442 Hydromorphone HCl 0.8 MG Q4P PRN 02/07 1730 DC IV Hydromorphone HCl 0.5 MG Q4P PRN 02/06 0200 DC 02/07 IV 1503 Ondansetron HCl 4 MG .STK-MED ONE 02/08 0139 DC IM 02/08 0140 Ondansetron HCl 4 MG Q6P PRN 02/07 1915 02/08 IV 1017 Ondansetron HCl 4 MG Q6P PRN 02/06 0200 DC 02/07 IV 1503 Patient Medication 1 UNIT ONE NR 02/07 1930 AR Teaching ED 02/07 2000 Patient Medication 1 UNIT ONE NR 02/07 1930 AR Teaching ED 02/07 2000 Polyethylene Glycol 17 GM DAILY PRN 02/07 191 AC PO Polyethylene Glycol 17 GM DAILY PRN 02/06 1400 DC PO Potassium Chloride 20 MEQ Q10H 02/07 1915 AC 02/08 Dextrose/Sodium 1,000 ML IV 0646 Chloride Senna/Docusate Sodium 2 TAB DAILY PRN 02/07 1915 AC PO Senna/Docusate Sodium 2 TAB DAILY PRN 02/06 1400 DC PO Sodium Chloride 1,000 ML Q10H 02/06 0215 DC 02/07 IV 1208 Last 24 Hrs of Lab/Rory Results Last 24 Hrs of Labs/Mics: Laboratory Tests 02/08/17 0610: Anion Gap 8, Estimated GFR > 60, BUN/Creatinine Ratio 8.0, Total Bilirubin 2.3 H, Direct Bilirubin 0.7 H, AST 86 H, ALT 223 H, Alkaline Phosphatase 116, Total Protein 6.3, Albumin 3.4 L, CBC w Diff NO MAN DIFF REQ, RBC 4.23, MCV 92.0, MCH 31.1 H, RDW 12.7, MPV 9.7, Gran % 82.0 H, Lymphocytes % 9.3 L, Monocytes % 8.6, Eosinophils % 0.1, Basophils % 0 L, Absolute Granulocytes 7.8 H, Absolute Lymphocytes 0.9 L, Absolute Monocytes 0.8 H, Absolute Eosinophils 0, Absolute Basophils 0, PUBS MCHC 33.8 Assessment/Plan Assessment: Patient is a morbidly obese 26 year old woman s/p gastric sleeve 09/05/2016 with medical hx of GERD and obstructive sleep apnea on nocturnal CPAP. She presents with epigastric pain nausea vomiting (nonbilious nonbloody) that started on the morning of admission. She said that she is having epigastric pain and nausea intermittently over 2 months. At the time she called her surgeon who said it was normal postoperatively. She has no personal history of gallstones. Does endorse body aches and chills without fever or diarrhea. At the time of admission she was afebrile, normal heart rate and blood pressure 95% on room air. She had a positive Green sign on examination. Her labs were significant for Total bilirubin is elevated at 2.1. Transaminitis AST 788 ALT 462 ALP 145. Amylase lipase are negative. Imaging done as inpatient CT of the abdomen and pelvis not reveal any acute abnormality. MRCP 02/06/17 Cholelithiasis without imaging evidence of acute cholecystitis or choledocholithiasis. Problem list Transaminitis possible cholecystitis versus choledocholithiasis Nausea Bradycardia Obstructive sleep apnea Abdominal pain: Patient presented with abdominal pain and elevated LFTs , likely secondary to acute cholecystitis, she under went laparoscopic cholecystectomy yesterday. Started on clears which she has taken only a couple of sips, reports that her abdomen is sore but otherwise denies any nausea or vomiting, will advance as tolerated. Has been afebrile, white count has been stable. We'll follow daily LFTs, if bilirubin becomes markedly elevated or if she develops symptoms of cholangitis ERCP might be needed. We'll continue with pain management. GI and surgery on board, the following recommendations. ASymptomatic Bradycardia Continuous telemetry monitoring, he should has been hemodynamically stable, will check TSH and free T4 for now, echocardiogram has been ordered, cardiology has been consulted will follow-up recommendations. Obstructive sleep apnea Continue the use of CPAP at night Nausea Zofran when necessary as needed DVT prophylaxis subcutaneous heparin Full code Problem List: 1. Transaminitis 2. Abdominal pain 3. Elevated bilirubin Pain Ratin Pain Location: Abdomen Pain Goal: Remain pain free Pain Plan: Dilaudid Tomorrow's Labs & Rationales: BEP for lice monitoring CBC for WBC monitoring LFTs
--- NOTE | 2017-02-08 10:52 | PN- Att Addend ---
Attending Addendum Attending Brief Note Patient seen and examined. Plan of care discussed with the medical team and the patient. Available lab work and radiology test reports were reviewed. Patient is status post laparoscopic cholecystectomy yesterday. She was moved to ICU yesterday for sinus bradycardia. Her pain is currently well controlled. She denies any fever chills or difficulty breathing. Denies any nausea vomiting fever or diarrhea. Vital Signs Date Time Temp Pulse Resp B/P Pulse O2 O2 Flow FiO2 Ox Delivery Rate 02/08 0800 99.0 56 20 112/70 96 Room Air 02/08 0000 96 Room Air 02/08 0000 97.6 52 24 120/80 96 Room Air 02/07 1600 97.0 62 26 120/60 96 Room Air Room Air 02/07 1115 99 Room Air 02/07 1115 97.8 56 20 136/84 99 Room Air Intake & Output 02/08 1600 02/08 0800 02/08 0000 Intake Total 1000 2300 Output Total 800 Balance 1000 1500 Intake, IV 800 2300 Intake, Oral 200 0 Output, Urine 800 Exam: General: Patient awake alert oriented without any distress CVS: S1 plus S2 without any murmur or gallops Chest: Few scattered crepitation without any wheeze. There is no respiratory distress. Abdomen: Soft obese abdomen tender close to surgical wounds. Bowel sounds are present. 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 without any focal neuro deficit and follows command appropriately Extremities: No edema; no clubbing or cyanosis noted Laboratory Tests 02/08 0610 Chemistry Sodium (137 - 145 mmol/L) 137 Potassium (3.5 - 5.1 mmol/L) 3.8 Chloride (98 - 107 mmol/L) 99 Carbon Dioxide (22 - 30 mmol/L) 29 Anion Gap (5 - 16) 8 BUN (7 - 17 mg/dL) 4 L Creatinine (0.5 - 1.0 mg/dL) 0.5 Estimated GFR (>60 ml/min) > 60 BUN/Creatinine Ratio (7 - 25 %) 8.0 Total Bilirubin (0.2 - 1.3 mg/dL) 2.3 H Direct Bilirubin (< 0.4 mg/dL) 0.7 H AST (14 - 36 U/L) 86 H ALT (9 - 52 U/L) 223 H Alkaline Phosphatase (<127 U/L) 116 Total Protein (6.3 - 8.2 g/dL) 6.3 Albumin (3.5 - 5.0 g/dL) 3.4 L Hematology CBC w Diff NO MAN DIFF REQ WBC (4.8 - 10.8 /CUMM) 9.5 RBC (4.20 - 5.40 /CUMM) 4.23 Hgb (12.0 - 16.0 G/DL) 13.1 Hct (37 - 47 %) 38.9 MCV (81.0 - 99.0 FL) 92.0 MCH (27.0 - 31.0 PG) 31.1 H RDW (11.5 - 14.5 %) 12.7 Plt Count (130 - 400 /CUMM) 236 MPV (7.4 - 10.4 FL) 9.7 Gran % (42.2 - 75.2 %) 82.0 H Lymphocytes % (20.5 - 51.1 %) 9.3 L Monocytes % (1.7 - 9.3 %) 8.6 Eosinophils % (0 - 5 %) 0.1 Basophils % (0.0 - 2.0 %) 0 L Absolute Granulocytes (1.4 - 6.5 /CUMM) 7.8 H Absolute Lymphocytes (1.2 - 3.4 /CUMM) 0.9 L Absolute Monocytes (0.10 - 0.60 /CUMM) 0.8 H Absolute Eosinophils (0.0 - 0.7 /CUMM) 0 Absolute Basophils (0.0 - 0.2 /CUMM) 0 PUBS MCHC (33.0 - 37.0 G/DL) 33.8 Old EKG from [facility] was reviewed and also shows sinus bradycardia rate of 64. Assessment * Acute cholecystitis without evidence of coronary the cholelithiasis * Persistent epigastric pain * Bradycardia likely sinus- patient does not have any prior cardiac history * History bariatric surgery with gastric sleeve * Elevated bilirubin * Transaminitis gradually improving Plan * Continue telemetry given the degree of bradycardia. Patient has persistent bradycardic which I think is underlying sinus bradycardia and is unlikely to be from morphine. Discussed with Dr. Anderson who will see the patient today. * Continue IV fluids until patient is able to take oral diet * Continue Dilaudid 0.8 mg every 4 hours when necessary IV. * Patient can be moved to telemetry
--- NOTE | 2017-02-08 10:58 | Cons- Cardiology ---
General Information and HPI Consulting Request Date of Consult: 02/08/17 Requested By: PAULA MCNALLY M.D History of Present Illness: Ms. Garcia is a 26 year old female with history of dyslipidemia, obesity s/p gastric sleeve procedure and obstuctive sleep apnea of CPAP. She does carry a family history of premature coronary artery disease in her father. This patient was admitted with epigastric pain and is now s/p a laparoscopic cholecystectomy. This patient has baseline bradycardia. Her heart rate was in the 50's to 60's at the time of initial presentation to the hospital when in pain. Her heart rate has been in the mid 40's but does tend to increase a bit when awake. The patient denies any associated lightheadedness but has noted occasional and transient lightheadedness lasting seconds when she arises quickly. This symptom has been present for about two months and only last for seconds at a time. At baseline this patient is mildly active and tried to exercise at the gym. She reports mild lower midsternal chest discomfort with manual palpation but none with exercise. She does not have any shortness of breath at her current level of activity. Although this patient has a CPAP device , she has not been using it because the pressure is too high now that she lost some weight. Allergies/Medications Allergies: Uncoded Allergies: IODINE IV CONTRAST (02/05/17) Home Med List: Ondansetron (Zofran Odt) 4 MG TAB.RAPDIS 1 TAB SL TID PRN NAUSEA Pantoprazole Sodium (Protonix) 40 MG TABLET.DR 1 TAB PO DAILY STOMACH PAIN Review of Systems Review of Systems: A twelve point review of systems is unremarkable other than the above. 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 Father: [place] in his thirties Psychosocial History Where Do You Live? Home Services at Home: None Smoking Status: Never Smoked ETOH Use: denies use Illicit Drug Use: marijuana Functional Ability ADLs Independent: dressing, eating, toileting, bathing. Ambulation: independent IADLs Independent: shopping, housework, finances, food prep, telephone, transportation , medication admin. Exam & Diagnostic Data Vital Signs and I&O Vital Signs Date Time Temp Pulse Resp B/P Pulse O2 O2 Flow FiO2 Ox Delivery Rate 02/08 0800 99.0 56 20 112/70 96 Room Air 02/08 0000 96 Room Air 02/08 0000 97.6 52 24 120/80 96 Room Air 02/07 1600 97.0 62 26 120/60 96 Room Air Room Air 02/07 1115 99 Room Air 02/07 1115 97.8 56 20 136/84 99 Room Air Intake & Output 02/08 1600 02/08 0800 / 0000 02/07 1600 02/07 0800 02/07 0000 Intake Total 1000 2300 621 287 7708 Output Total 800 500 Balance 1000 1500 -951 026 0938 Intake, IV 800 2300 250 800 800 Intake, Oral 200 0 0 0 450 Number 0 Bowel Movements Output, Urine 800 500 Patient 246 lb Weight Physical Exam: General: WD/ morbidly obese female in NAD; alert and oriented x 3 HEENT: NC/AT, PERRL, EOMI, clear oropharynx Neck: no JVD, no carotid bruits Heart: RRR w/o murmur Lungs: clear bilaterally Abdomen: soft, diffusely tender with recent surgical wounds, +ve bowel sounds Extremities: no edema Diagnostic Data EKG Results sinus bradycardia Assessment/Plan Assessment/Plan * This patient has asymptomatic bradycardia. It is difficult to know if this is a new condition or if this is her baseline. We will continue to monitor on telemetry. Check a TSH and free T4. For now the patient appears to be hemodynamically stable. * Hypoxia can lead to bradycardia. As such, this patient should have her CPAP pressure adjusted downward to a level that she can tolerate so that she uses the device. * This patient was noted on telemetry to have a short run of NSVT. Considering her chest discomfort (atypical), obesity/dyslipidemia and father's history of [place] in his thirties, this patient should be risk stratified with a stress test. This may be done as an outpatient when a bit more healed. I would also assess her for structural heart disease and regional wall motion abnormalities with an echocardiogram. Ischemia, if present, could be a possibly etiology of bradycardia. Consult Acknowledgment - Thank you for your consult request.
--- NOTE | 2017-02-08 12:40 | PN- Gastroenterology ---
Assessment/Plan Assessment/Recommendations: Assessmnt: Ms. Garcia is a 26 year old female admitted with increased LFTs apparently secondary to a passed stone. 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 Recommendations: 1. Diet and abx as per surgical team 2. Analgesia as needed 3. Follow daily LFTs while an inpatient 4. Notify GI for signs of cholangitis 5. If bilirubin becomes markedly elevated or if she develops symptoms of cholangitis consideration will be given for an ERCP, but for the reasons stated above will hold off on that at this time. I will continue to follow this patient and make further recommendations based on her clinical course and results of repeat blood work. Problem List: 1. Abdominal pain 2. Elevated bilirubin 3. Choledocholithiasis 4. Abdominal pain Subjective Subjective: Pt s/p laproscopic CCY yesterday evening without complications. She currently feels improved. She has some pain at the port sites, but the RUQ pain has resolved. She is tolerating liquids and is without any vomiting. She is also without any complaints of dark urine. Objective Vital Signs and I&Os Vital Signs Date Time Temp Pulse Resp B/P Pulse O2 O2 Flow FiO2 Ox Delivery Rate 02/10 1502 98.2 54 124/78 97 Room Air Intake & Output 02/11 1600 02/11 0400 02/10 1600 02/10 0400 02/09 1600 02/09 0400 Intake Total 240 2510.4 1150 2540 460 Output Total Balance 240 2510.4 1150 2540 460 Intake, IV 1560.4 800 1500 400 Intake, Oral 240 738 793 1305 60 Number 0 2 1 Bowel Movements Physical Exam General Appearance: well developed/nourished, no apparent distress, alert, comfortable Head: atraumatic, normal appearance Ears, Nose, Throat: normal pharynx Neck: normal inspection, supple Respiratory: normal breath sounds, chest non-tender Cardiovascular: regular rate/rhythm Abdomen: normal bowel sounds, soft, tenderness Extremities: normal inspection, normal capillary refill Neurologic/Psychiatric: no motor/sensory deficits, awake, alert, oriented x 3 Current Medications: Current Medications Sig/Jimmy Start time Last Medication Dose Route Stop Time Status Admin Ampicillin Sodium/ 3,000 MG Q6H 02/06 0800 DC 02/07 Sulbactam Sodium IV 1502 Sodium Chloride 100 ML Bisacodyl 5 MG DAILY PRN 02/07 1915 AC PO Bisacodyl 5 MG DAILY PRN 02/06 1400 DC PO Diphenhydramine HCl 25 MG Q6P PRN 02/07 1915 AC IV Diphenhydramine HCl 25 MG Q6P PRN 02/06 0200 DC IV Enoxaparin Sodium 40 MG DAILY 02/08 1000 AC 02/08 SC 0853 Enoxaparin Sodium 40 MG DAILY 02/06 1000 DC 02/06 SC 0853 Fentanyl Citrate 250 MCG .STK-MED ONE 02/07 1615 DC IM 02/07 1616 Hydromorphone HCl 0.8 MG Q4P PRN 02/07 191 AC 02/08 IV 1018 Hydromorphone HCl 0.8 MG Q4P PRN 02/07 1730 DC IV Hydromorphone HCl 0.5 MG Q4P PRN 02/06 0200 DC 02/07 IV 1503 Midazolam HCl 5 MG .STK-MED ONE 02/07 1615 DC IM 02/07 1616 Ondansetron HCl 4 MG .STK-MED ONE 02/08 0139 DC IM 02/08 0140 Ondansetron HCl 4 MG Q6P PRN 02/07 1915 AC 02/08 IV 1017 Ondansetron HCl 4 MG Q6P PRN 02/06 0200 DC 02/07 IV 1503 Patient Medication 1 UNIT ONE NR 02/07 1930 TN Teaching ED 02/08 2000 Patient Medication 1 UNIT ONE NR 02/07 1930 TN Teaching ED 02/08 2000 Patient Medication 1 ED .STK-MED ONE 02/07 1409 TN Teaching ED 02/07 1410 Polyethylene Glycol 17 GM DAILY PRN 02/07 1915 AC PO Polyethylene Glycol 17 GM DAILY PRN 02/06 1400 DC PO Potassium Chloride 20 MEQ Q10H 02/07 1915 AC 02/08 Dextrose/Sodium 1,000 ML IV 0646 Chloride Senna/Docusate Sodium 2 TAB DAILY PRN 02/07 1915 AC PO Senna/Docusate Sodium 2 TAB DAILY PRN 02/06 1400 DC PO Sodium Chloride 1,000 ML Q10H 02/06 0215 DC 02/07 IV 1208 Results Pertinent Lab Results: Laboratory Tests 02/08 02/07 0610 0725 Chemistry Sodium (137 - 145 mmol/L) 137 138 Potassium (3.5 - 5.1 mmol/L) 3.8 3.9 Chloride (98 - 107 mmol/L) 99 102 Carbon Dioxide (22 - 30 mmol/L) 29 27 Anion Gap (5 - 16) 8 10 BUN (7 - 17 mg/dL) 4 L 5 L Creatinine (0.5 - 1.0 mg/dL) 0.5 0.6 Estimated GFR (>60 ml/min) > 60 > 60 BUN/Creatinine Ratio (7 - 25 %) 8.0 8.3 Total Bilirubin (0.2 - 1.3 mg/dL) 2.3 H 2.5 H Direct Bilirubin (< 0.4 mg/dL) 0.7 H 0.9 H AST (14 - 36 U/L) 86 H 134 H ALT (9 - 52 U/L) 223 H 290 H Alkaline Phosphatase (<127 U/L) 116 123 Total Protein (6.3 - 8.2 g/dL) 6.3 5.9 L Albumin (3.5 - 5.0 g/dL) 3.4 L 3.2 L Hematology CBC w Diff NO MAN DIFF REQ NO MAN DIFF REQ WBC (4.8 - 10.8 /CUMM) 9.5 5.9 RBC (4.20 - 5.40 /CUMM) 4.23 3.89 L Hgb (12.0 - 16.0 G/DL) 13.1 12.1 Hct (37 - 47 %) 38.9 35.9 L MCV (81.0 - 99.0 FL) 92.0 92.4 MCH (27.0 - 31.0 PG) 31.1 H 31.1 H RDW (11.5 - 14.5 %) 12.7 13.4 Plt Count (130 - 400 /CUMM) 236 199 MPV (7.4 - 10.4 FL) 9.7 9.9 Gran % (42.2 - 75.2 %) 82.0 H 61.7 Lymphocytes % (20.5 - 51.1 %) 9.3 L 30.2 Monocytes % (1.7 - 9.3 %) 8.6 6.9 Eosinophils % (0 - 5 %) 0.1 0.8 Basophils % (0.0 - 2.0 %) 0 L 0.4 Absolute Granulocytes (1.4 - 6.5 /CUMM) 7.8 H 3.6 Absolute Lymphocytes (1.2 - 3.4 /CUMM) 0.9 L 1.8 Absolute Monocytes (0.10 - 0.60 /CUMM) 0.8 H 0.4 Absolute Eosinophils (0.0 - 0.7 /CUMM) 0 0 Absolute Basophils (0.0 - 0.2 /CUMM) 0 0 PUBS MCHC (33.0 - 37.0 G/DL) 33.8 33.7 02/0616 02/06 0620 0211 0105 Chemistry Sodium (137 - 145 mmol/L) 140 Potassium (3.5 - 5.1 mmol/L) 3.8 Chloride (98 - 107 mmol/L) 109 H Carbon Dioxide (22 - 30 mmol/L) 24 Anion Gap (5 - 16) 7 BUN (7 - 17 mg/dL) 8 Creatinine (0.5 - 1.0 mg/dL) 0.5 Estimated GFR (>60 ml/min) > 60 BUN/Creatinine Ratio (7 - 25 %) 16.0 Lactic Acid Cancelled Total Bilirubin (0.2 - 1.3 mg/dL) 2.2 H Direct Bilirubin (< 0.4 mg/dL) 0.9 H AST (14 - 36 U/L) 551 H ALT (9 - 52 U/L) 457 H Alkaline Phosphatase (<127 U/L) 129 H Total Protein (6.3 - 8.2 g/dL) 5.8 L Albumin (3.5 - 5.0 g/dL) 3.2 L Coagulation PT (9.4 - 12.5 SEC) 12.2 Cancelled INR (0.90 - 1.19) 1.16 Cancelled Hematology CBC w Diff NO MAN DIFF REQ WBC (4.8 - 10.8 /CUMM) 7.8 RBC (4.20 - 5.40 /CUMM) 3.92 L Hgb (12.0 - 16.0 G/DL) 12.3 Hct (37 - 47 %) 36.6 L MCV (81.0 - 99.0 FL) 93.4 MCH (27.0 - 31.0 PG) 31.4 H RDW (11.5 - 14.5 %) 13.4 Plt Count (/CUMM) MPV (7.4 - 10.4 FL) 10.8 H Gran % (42.2 - 75.2 %) 63.6 Lymphocytes % (20.5 - 51.1 %) 30.4 Monocytes % (1.7 - 9.3 %) 5.3 Eosinophils % (0 - 5 %) 0.4 Basophils % (0.0 - 2.0 %) 0.3 Absolute Granulocytes (1.4 - 6.5 /CUMM) 4.9 Absolute Lymphocytes (1.2 - 3.4 /CUMM) 2.4 Absolute Monocytes (0.10 - 0.60 /CUMM) 0.4 Absolute Eosinophils (0.0 - 0.7 /CUMM) 0 Absolute Basophils (0.0 - 0.2 /CUMM) 0 PUBS MCHC (33.0 - 37.0 G/DL) 33.5 Serology Hepatitis A IgM Ab (NONREACTIVE) NONREACTIVE Hep Bs Antigen (NONREACTIVE) NONREACTIVE Hep B Core IgM Ab Conf (NONREACTIVE) NONREACTIVE Hepatitis C Antibody (NONREACTIVE) NONREACTIVE 02/06 02/05 3025 1862 Chemistry Sodium (137 - 145 mmol/L) 143 Potassium (3.5 - 5.1 mmol/L) 3.5 Chloride (98 - 107 mmol/L) 109 H Carbon Dioxide (22 - 30 mmol/L) 26 Anion Gap (5 - 16) 9 BUN (7 - 17 mg/dL) 10 Creatinine (0.5 - 1.0 mg/dL) 0.5 Estimated GFR (>60 ml/min) > 60 BUN/Creatinine Ratio (7 - 25 %) 20.0 Glucose (65 - 99 mg/dL) 100 H Lactic Acid (0.7 - 2.1 mmol/L) 1.0 Calcium (8.4 - 10.2 mg/dL) 9.4 Total Bilirubin (0.2 - 1.3 mg/dL) 2.1 H Direct Bilirubin (< 0.4 mg/dL) 1.3 H AST (14 - 36 U/L) 788 H ALT (9 - 52 U/L) 462 H Alkaline Phosphatase (<127 U/L) 145 H Total Protein (6.3 - 8.2 g/dL) 6.4 Albumin (3.5 - 5.0 g/dL) 3.7 Globulin (1.9 - 4.2 gm/dL) 2.7 Albumin/Globulin Ratio (1.1 - 2.2 %) 1.4 Amylase (30 - 110 U/L) 45 Lipase (23 - 300 U/L) 66 Total Beta HCG (NEGATIVE) NEGATIVE Hematology CBC w Diff NO MAN DIFF REQ WBC (4.8 - 10.8 /CUMM) 7.8 RBC (4.20 - 5.40 /CUMM) 4.11 L Hgb (12.0 - 16.0 G/DL) 12.8 Hct (37 - 47 %) 38.3 MCV (81.0 - 99.0 FL) 93.2 MCH (27.0 - 31.0 PG) 31.2 H RDW (11.5 - 14.5 %) 13.5 Plt Count (130 - 400 /CUMM) 229 MPV (7.4 - 10.4 FL) 9.3 Gran % (42.2 - 75.2 %) 83.6 H Lymphocytes % (20.5 - 51.1 %) 8.9 L Monocytes % (1.7 - 9.3 %) 7.3 Eosinophils % (0 - 5 %) 0.1 Basophils % (0.0 - 2.0 %) 0.1 Absolute Granulocytes (1.4 - 6.5 /CUMM) 6.6 H Absolute Lymphocytes (1.2 - 3.4 /CUMM) 0.7 L Absolute Monocytes (0.10 - 0.60 /CUMM) 0.6 Absolute Eosinophils (0.0 - 0.7 /CUMM) 0 Absolute Basophils (0.0 - 0.2 /CUMM) 0 PUBS MCHC (33.0 - 37.0 G/DL) 33.5 Toxicology Urine Opiates Screen (>2000 NG/ML) > 4000.00 H Methadone Screen (>300 NG/ML) < 40 Barbiturate Screen (>200 NG/ML) < 60 Ur Phencyclidine Scrn (>25 NG/ML) < 6.00 Amphetamines Screen (>1000 NG/ML) < 100 U Benzodiazepines Scrn (>200 NG/ML) < 85 Urine Cocaine Screen (>300 NG/ML) < 50 Urine Cannabis Screen (>50 NG/ML) 75.70 H Serum Alcohol (<10 MG/DL) < 10.0 Urines Urine Color (YEL,AMB,STR) YEL Urine Clarity (CLEAR) CLEAR Urine pH (5.0 - 8.0) 6.0 Ur Specific [place] (1.001 - 1.035) >= 1.030 Urine Protein (NEG,<30 MG/DL) TRACE H Urine Ketones (NEG) NEG Urine Nitrite (NEG) POS H Urine Bilirubin (NEG) POS@ICTO H Urine Urobilinogen (0.1 - 1.0 EU/dl) 4.0 H Ur Leukocyte Esterase (NEG) NEG Ur Microscopic SEDIMENT EXAMINED Urine WBC (0 - 2 /HPF) RARE Ur Epithelial Cells (NONE,FEW) FEW Urine Bacteria (NEG/NONE) MOD H Urine Hemoglobin (NEG) NEG Urine Glucose (N MG/DL) NEG
[2017-02-08 16:00] VITALS: BP 106/78
[2017-02-08 19:14] VITALS: BP 116/62
--- NOTE | 2017-02-08 22:25 | Event Note ---
Event Note Event Note: Notified by nursing staff that patient has 5/10 substernal/epigastric pressure that is nonradiating. Vital signs at this time were T 98.1, HR 85, RR 16, BP 112 /76 and O2 saturation of 97% on RA. Patient is here s/p lap gatito and initially presented with epigastric pain. As per Dr. Anderson's note today, he reported that the patient has had mild lower midsternal chest discomfort; thus, this is likely not new. Patient will likely have a stress test as an outpatient due to history of obesity, dyslipidemia and father's history of VA in his 30s. At this point in time, we will order a troponin/EKG and follow results up closely. EKG shows no significant change from previous. Troponin <0.01. Will make AM team aware of overnight events.
[2017-02-08 22:30] VITALS: BP 112/76
[2017-02-09 07:50] VITALS: BP 100/60
[2017-02-09 08:12] LABS: ABSOLUTE BASOPHIL COUNT 0 /CUMM (0.0-0.2); ABSOLUTE EOSINOPHIL COUNT 0 /CUMM (0.0-0.7); ABSOLUTE GRANULOCYTE CT 5.7 /CUMM (1.4-6.5); ABSOLUTE LYMPH COUNT 1.5 /CUMM (1.2-3.4); ABSOLUTE MONOCYTE COUNT 0.6 /CUMM (0.10-0.60); BASOPHIL % 0.3 % (0.0-2.0); EOSINOPHIL % 0.4 % (0-5); GRANULOCYTE % 72.4 % (42.2-75.2); HEMATOCRIT 37.8 % (37-47); MEAN CORPUSCULAR HGB 31.4 PG (27.0-31.0); MEAN CORPUSCULAR HGB CONC 33.9 G/DL (33.0-37.0); MEAN CORPUSCULAR VOLUME 92.7 FL (81.0-99.0); MEAN PLATELET VOLUME 9.9 FL (7.4-10.4); PLATELET COUNT 220 /CUMM (130-400); RBC DISTRIBUTION WIDTH 13.3 % (11.5-14.5); RED BLOOD CELL CT 4.08 /CUMM (4.20-5.40); WHITE BLOOD CELL COUNT 7.8 /CUMM (4.8-10.8)
--- NOTE | 2017-02-09 08:49 | PN- Housestaff ---
Subjective Follow-up For: status post laparoscopic cholecystectomy due to cholecystitis with elevated LFTs , D#1 Bradycardia Nause Abdominal pain Complaints: no complaints Tele-Events Since Last Visit: Normal sinus rhythm, heart rate between 80-90, no any overnight events Subjective: Patient is seen and examined at the bedside. She was not having any active complaints. We started her on full liquid diet. Review of Systems Constitutional: Denies: no symptoms. Cardiovascular: Denies: no symptoms. Respiratory: Denies: no symptoms. Gastrointestinal: Denies: no symptoms. Genitourinary: Denies: no symptoms. Musculoskeletal: Denies: no symptoms. Skin: Denies: no symptoms. Neurological/Psychological: Denies: no symptoms. Objective Last 24 Hrs of Vital Signs/I&O Vital Signs Date Time Temp Pulse Resp B/P Pulse O2 O2 Flow FiO2 Ox Delivery Rate 02/09 1717 99.1 60 16 118/66 96 Room Air 02/09 0750 99.0 67 20 100/60 95 02/08 2354 69 92 02/08 2230 98.1 79 16 112/76 96 Room Air Intake & Output 02/09 1600 02/09 0800 02/09 0000 Intake Total 1500 1040 460 Output Total Balance 1500 1040 460 Intake, IV 700 800 400 Intake, Oral 800 240 60 Number 1 Bowel Movements Physical Exam General Appearance: Alert, Oriented X3, Cooperative, No Acute Distress Cardiovascular: Normal S1, Normal S2 Lungs: Clear to Auscultation, Normal Air Movement Abdomen: Soft, No Tenderness Neurological: Normal Speech Extremities: No Clubbing, No Cyanosis, No Edema Vascular: Normal Pulses, Pulses Symmetrical Assessment/Plan Assessment: Patient is a morbidly obese 26 year old woman s/p gastric sleeve 09/05/2016 with medical hx of GERD and obstructive sleep apnea on nocturnal CPAP. She presents with epigastric pain nausea vomiting (nonbilious nonbloody) that started on the morning of admission. She said that she is having epigastric pain and nausea intermittently over 2 months. At the time she called her surgeon who said it was normal postoperatively. She has no personal history of gallstones. Does endorse body aches and chills without fever or diarrhea. At the time of admission she was afebrile, normal heart rate and blood pressure 95% on room air. She had a positive Green sign on examination. Her labs were significant for Total bilirubin is elevated at 2.1. Transaminitis AST 788 ALT 462 ALP 145. Amylase lipase are negative. Imaging done as inpatient CT of the abdomen and pelvis not reveal any acute abnormality. MRCP 02/06/17 Cholelithiasis without imaging evidence of acute cholecystitis or choledocholithiasis. Problem list Transaminitis possible cholecystitis versus choledocholithiasis, status post cholecystectomy on 02/07/2017 Nausea Bradycardia Obstructive sleep apnea Cholecystitis status post laparoscopic cholecystectomy Patient presented with abdominal pain and elevated LFTs , likely secondary to acute cholecystitis, she under went laparoscopic cholecystectomy on 02/07/2017. Denies of any abdominal pain. Also having constipation Started on full liquid diet, tolerating well Denies of any nausea and vomiting We'll follow daily LFTs, if bilirubin becomes markedly elevated or if she develops symptoms of cholangitis ERCP might be needed. Pain medication according to pain scale We will follow the recommendation of GI and the surgery. According to surgery as patient is having constipation, We should give Enema Increase injection Dilaudid 0.8 milligram every 4 hourly Asymptomatic Bradycardia Continuous telemetry monitoring, TFT was normal We will do stress testing as an outpatient for risk stratification Follow-up echocardiogram Obstructive sleep apnea Continue the use of CPAP at night Nausea Zofran when necessary as needed DVT prophylaxis - subcutaneous heparin, Early ambulation CODE STATUS -Full code Problem List: 1. S/P laparoscopic cholecystectomy 2. Bradycardia Pain Ratin Pain Location: Upper Abdomen Pain Goal: Remain pain free Pain Plan: mild Tomorrow's Labs & Rationales: none DVT/Prophylaxis: mechanical, pharmacological
--- NOTE | 2017-02-09 10:04 | PN- General Surgery ---
Surgical Brief Attending Note Brief Attending Note: RECOVERING WELL. SLOW TREND TO NORMAL LFT. DELAYED BILIRUBIN NORMALIZATION EXPECTED. OK TO ADVANCE DIET. SUSPECT CONSTIPATION INDUCED APPETITE SUPPRESSION. RECOMMEND ENEMA.
--- NOTE | 2017-02-09 11:51 | PN- Att Addend ---
Attending Addendum Attending Brief Note Patient seen and examined. Plan of care discussed with the medical team and the patient. Available lab work and radiology test reports were reviewed. Patient is status post laparoscopic cholecystectomy. She was moved to [facility] yesterday for sinus bradycardia. Her pain is currently well controlled. She denies any fever chills or difficulty breathing. Denies any nausea vomiting fever or diarrhea. Events of last night noted. Vital Signs Date Time Temp Pulse Resp B/P Pulse O2 O2 Flow FiO2 Ox Delivery Rate 02/09 0750 99.0 67 20 100/60 95 02/08 2354 69 92 02/08 2230 98.1 79 16 112/76 96 Room Air 02/08 1914 97.8 84 16 116/62 97 Room Air 02/08 1600 98.2 72 18 106/78 95 Room Air Intake & Output 02/09 1600 02/09 0800 02/09 0000 Intake Total 1040 460 Output Total Balance 1040 460 Intake, IV 800 400 Intake, Oral 240 60 Exam: General: Patient awake alert oriented without any distress CVS: S1 plus S2 without any murmur or gallops Chest: Few scattered crepitation without any wheeze. There is no respiratory distress. Abdomen: Soft obese abdomen tender close to surgical wounds. Bowel sounds are present. 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 without any focal neuro deficit and follows command appropriately Extremities: No edema; no clubbing or cyanosis noted Laboratory Tests 02/09 02/08 0700 2225 Chemistry Sodium (137 - 145 mmol/L) 135 L Potassium (3.5 - 5.1 mmol/L) 3.7 Chloride (98 - 107 mmol/L) 101 Carbon Dioxide (22 - 30 mmol/L) 27 Anion Gap (5 - 16) 7 BUN (7 - 17 mg/dL) 3 L Creatinine (0.5 - 1.0 mg/dL) 0.5 Estimated GFR (>60 ml/min) > 60 BUN/Creatinine Ratio (7 - 25 %) 6.0 L Total Bilirubin (0.2 - 1.3 mg/dL) 2.0 H Direct Bilirubin (< 0.4 mg/dL) 0.7 H AST (14 - 36 U/L) 36 ALT (9 - 52 U/L) 146 H Alkaline Phosphatase (<127 U/L) 103 Troponin I (< 0.11 ng/ml) < 0.01 Total Protein (6.3 - 8.2 g/dL) 6.0 L Albumin (3.5 - 5.0 g/dL) 3.2 L Hematology CBC w Diff NO MAN DIFF REQ WBC (4.8 - 10.8 /CUMM) 7.8 RBC (4.20 - 5.40 /CUMM) 4.08 L Hgb (12.0 - 16.0 G/DL) 12.8 Hct (37 - 47 %) 37.8 MCV (81.0 - 99.0 FL) 92.7 MCH (27.0 - 31.0 PG) 31.4 H RDW (11.5 - 14.5 %) 13.3 Plt Count (130 - 400 /CUMM) 220 MPV (7.4 - 10.4 FL) 9.9 Gran % (42.2 - 75.2 %) 72.4 Lymphocytes % (20.5 - 51.1 %) 18.9 L Monocytes % (1.7 - 9.3 %) 8.0 Eosinophils % (0 - 5 %) 0.4 Basophils % (0.0 - 2.0 %) 0.3 Absolute Granulocytes (1.4 - 6.5 /CUMM) 5.7 Absolute Lymphocytes (1.2 - 3.4 /CUMM) 1.5 Absolute Monocytes (0.10 - 0.60 /CUMM) 0.6 Absolute Eosinophils (0.0 - 0.7 /CUMM) 0 Absolute Basophils (0.0 - 0.2 /CUMM) 0 PUBS MCHC (33.0 - 37.0 G/DL) 33.9 Assessment * Acute cholecystitis * Status post laparoscopic cholecystectomy * Persistent epigastric pain * Bradycardia likely sinus- patient does not have any prior cardiac history * History bariatric surgery with gastric sleeve * Elevated bilirubin * Transaminitis gradually improving Plan * Continue telemetry given the degree of bradycardia. Discussed with Dr. Anderson who recommended further cardiac workup such as stress testing for risk stratification. * Encourage oral liquids and diet. * Continue Dilaudid 0.8 mg every 4 hours when necessary IV. * Ambulate patient * No need for daily lab work
--- NOTE | 2017-02-09 17:11 | PN- Cardiology ---
Subjective Subjective: * Patient reports atypical chest discomfort that is exacerbated by manual palpation over her xiphoid process. No lightheadedness. * sinus rhythm Objective Vital Signs and I&Os Vital Signs Date Time Temp Pulse Resp B/P Pulse O2 O2 Flow FiO2 Ox Delivery Rate 02/09 0750 99.0 67 20 100/60 95 02/08 2354 69 92 02/08 2230 98.1 79 16 112/76 96 Room Air 02/08 1914 97.8 84 16 116/62 97 Room Air Intake & Output 02/09 1600 02/09 0800 02/09 0000 02/08 1600 02/08 0800 02/08 0000 Intake Total 1500 8891 520 2417 1000 2300 Output Total 800 Balance 1500 2211 879 7598 1000 1500 Intake, IV 700 800 400 366 925 5755 Intake, Oral 800 240 60 480 200 0 Number 1 0 Bowel Movements Output, Urine 800 Physical Exam: General: WD/ morbidly obese female in NAD; alert and oriented x 3 Neck: no JVD, no carotid bruits Heart: RRR w/o murmur Lungs: clear bilaterally Abdomen: soft, diffusely tender with recent surgical wounds, +ve bowel sounds Extremities: no edema Assessment/Plan Assessment/Plan * This patient had asymptomatic bradycardia that appears to have improved. It is difficult to know if this is a new condition or if this is her baseline. Her TFT 's are normal. We will continue to monitor on telemetry. * Hypoxia can lead to bradycardia. As such, this patient should have her CPAP pressure adjusted downward to a level that she can tolerate so that she uses the device. * This patient was noted on telemetry to have a short run of NSVT. Considering her chest discomfort (atypical), obesity/dyslipidemia and father's history of ID in his thirties, this patient should be risk stratified with a stress test. This may be done as an outpatient when a bit more healed. I would also assess her for structural heart disease and regional wall motion abnormalities with an echocardiogram. Ischemia, if present, could be a possibly etiology of bradycardia. Continue telemetry? Yes
[2017-02-09 17:17] VITALS: BP 118/66
[2017-02-09 23:45] VITALS: BP 104/58
--- NOTE | 2017-02-10 07:31 | PN- Housestaff ---
TIFFANI WEINBERG 02/10/17 0731: Subjective Follow-up For: Status post laparoscopic cholecystectomy Nausea Bradycardia Sternal chest pain Subjective: Patient seen and examined this morning. She is sitting comfortably on the bed. She reports of some intermittent nausea and has been requiring Zofran for that. She tolerated full liquid diet well in the breakfast. Patient had a low-grade temp of 99.1 this morning. She remains bradycardic in 60s and 50s. Per cardiology patient CPAP pressure needs adjustment as that could be the cause of her bradycardia. Will advance patient to regular diet in lunch and possible discharge home if she tolerates it well Review of Systems Constitutional: Reports: see HPI. Objective Last 24 Hrs of Vital Signs/I&O Vital Signs Date Time Temp Pulse Resp B/P Pulse O2 O2 Flow FiO2 Ox Delivery Rate 02/10 0817 99.1 62 18 110/70 93 02/10 0800 Room Air 02/10 0323 58 95 02/10 0031 56 98 02/09 2345 98.8 70 18 104/58 100 CPAP 02/09 1717 99.1 60 16 118/66 96 Room Air Intake & Output 02/10 1600 02/10 0800 02/10 0000 Intake Total 1150 1150 Output Total Balance 1150 1150 Intake, IV 800 800 Intake, Oral 350 350 Number 0 2 Bowel Movements Physical Exam General Appearance: Alert, Oriented X3, Cooperative, No Acute Distress Skin: No Rashes HEENT: Atraumatic Neck: Supple Lymphatic: Cervical nl Cardiovascular: Normal S1, Normal S2, bradycardia Lungs: Clear to Auscultation, Normal Air Movement Abdomen: tenderness to palpation Neurological: Normal Speech, Normal Tone Current Medications: Current Medications Sig/Jimmy Start time Last Medication Dose Route Stop Time Status Admin Bisacodyl 5 MG DAILY PRN 02/07 1915 AC PO Diphenhydramine HCl 25 MG Q6P PRN 02/07 1915 AC IV Enoxaparin Sodium 40 MG DAILY 02/08 1000 AC 02/10 SC 0902 Hydromorphone HCl 0.8 MG Q4P PRN 02/07 1915 AC 02/10 IV 0850 Ondansetron HCl 4 MG .STK-MED ONE 02/09 1611 DC IM 02/09 1612 Ondansetron HCl 4 MG Q6P PRN 02/07 1915 AC 02/09 IV 2209 Polyethylene Glycol 17 GM DAILY PRN 02/07 1915 AC PO Potassium Chloride 20 MEQ Q10H 02/07 1915 AC 02/10 Dextrose/Sodium 1,000 ML IV 1013 Chloride Prochlorperazine 5 MG Q8P PRN 02/10 1015 AC PO Senna/Docusate Sodium 2 TAB DAILY PRN 02/07 1915 AC 02/09 PO 1554 Last 24 Hrs of Lab/Rory Results Last 24 Hrs of Labs/Mics: Laboratory Tests 02/10/17 0915: Anion Gap 6, Estimated GFR > 60, BUN/Creatinine Ratio 6.0 L Assessment/Plan Assessment: Patient is a morbidly obese 26 year old woman s/p gastric sleeve 09/05/2016 with medical hx of GERD and obstructive sleep apnea on nocturnal CPAP. She presents with epigastric pain nausea vomiting (nonbilious nonbloody) that started on the morning of admission. She said that she is having epigastric pain and nausea intermittently over 2 months. At the time she called her surgeon who said it was normal postoperatively. She has no personal history of gallstones. Does endorse body aches and chills without fever or diarrhea. At the time of admission she was afebrile, normal heart rate and blood pressure 95% on room air. She had a positive Green sign on examination. Her labs were significant for Total bilirubin is elevated at 2.1. Transaminitis AST 788 ALT 462 ALP 145. Amylase lipase are negative. Imaging done as inpatient CT of the abdomen and pelvis not reveal any acute abnormality. MRCP 02/06/17 Cholelithiasis without imaging evidence of acute cholecystitis or choledocholithiasis. Problem list Transaminitis possible cholecystitis versus choledocholithiasis, status post cholecystectomy on 02/07/2017 Nausea Bradycardia Obstructive sleep apnea Cholecystitis status post laparoscopic cholecystectomy Patient presented with abdominal pain and elevated LFTs , likely secondary to acute cholecystitis, she under went laparoscopic cholecystectomy on 02/07/2017. Patient denies any current abdominal pain but reports nausea for which she is taking Zofran. Compazine ordered today Patient will be started on regular diet for lunch and if she tolerates well as she will be discharged Her LFTs are trending down, morning labs pending GI and general surgery on board Asymptomatic Bradycardia Patient was evaluated by cardiology for her asymptomatic bradycardia she is continued on telemetry TFT was normal Dr. Anderson recommended an outpatient stress test for risk stratification Will follow-up echocardiogram Obstructive sleep apnea Continue the use of CPAP at night The pressures need to be adjusted as they might be causing her to be bradycardic with put in of respiratory miscellaneous Nausea Zofran and Compazine when necessary as needed Pain management post surgery Patient is on 8 mg of Dilaudid every 4 will transition to Percocet and monitor DVT prophylaxis - subcutaneous heparin, Early ambulation CODE STATUS -Full code Problem List: 1. Abdominal pain Pain Ratin Pain Location: Abdomen Pain Goal: Pain 4 or less Pain Plan: 1 tab Percocet mild pain to tap Percocet moderate pain Tomorrow's Labs & Rationales: None ALAYNA MATUTE MD 02/10/17 1333: Attending MD Review Statement Attending Statement Attending MD Statement: examined this patient, discuss w/resident/PA/COURT OF APPEALS JUDGE, agreed w/resident/PA/COURT OF APPEALS JUDGE, reviewed EMR data (avail) Attending Assessment/Plan: 26F PMH morbid obesity, FREDY admitted for acute cholecystitis s/p cholecystectomy on 02/06, found incidentally to have bradycardia 40-60's, but asymptomatic. Patient feels well today, reports abdominal soreness at surgical site but no pain or nausea. Tolerated regular diet today without difficulty. HR today 55- 65. 1. Acute cholecystitis s/p cholecystectomy 2. Sinus bradycardia 3. FREDY 4. Morbid obesity Plan - Continue regular diet - Tylenol PRN for mild/moderate pain - Percocet PRN for severe pain, will discharge with 6 tablets, 1 tab q8h PRN x 2 days - Follow up echocardiogram - Cardiology regarding discharge planning and outpatient stress test - Continue home medications - Respiratory therapy for overnight CPAP settings adjustment as recommended by cardiology - DVT PPx - Anticipated discharge later today or tomorrow morning
[2017-02-10 08:17] VITALS: BP 110/70
--- NOTE | 2017-02-10 12:35 | ECHOCARDIOGRAM REPORT ---
AMADA VILA Age: 26 : 1990 Gender: F Exam Date: 02/09/2017 13:14 Exam Location: 1 [address] Ht (in): 65 Wt (lb): 246 BSA: 2.32 BP: 112 / 76 Ordering Physician: CHAPITO SALMERON MD Referring Physician: Ozzie Anderson MD, PhD Technologist: Malia Bowen [facility] Room Number: 178 Indications: CHEST PAIN, BRADYCARDIA Rhythm: Sinus Technical Quality: good FINDINGS Left Ventricle Normal left ventricular size, wall thickness and systolic function with no obvious regional wall motion abnormalities. Normal left ventricular diastolic filling pattern for age. The ejection fraction is visually estimated at 60%. Right Ventricle The right ventricle is normal in size and function. Right Atrium The right atrium is normal in size. Left Atrium The left atrium is normal in size. The interatrial septum is intact. Mitral Valve The mitral valve is normal in structure and function. There is none mitral regurgitation. Aortic Valve Structurally normal aortic valve without significant sclerosis or stenosis. There is none aortic regurgitation. Tricuspid Valve The tricuspid valve is normal in structure and function. There is trace tricuspid regurgitation. Pulmonary artery systolic pressure is normal. Pulmonic Valve Structurally normal pulmonic valve. There is none pulmonic regurgitation. Pericardium Normal pericardium without effusion. No pleural effusion. Great Vessels Normal aortic root dimension. The aortic arch and great vessels are well seen and are normal. CONCLUSIONS 1. Normal EF of 60%. 2. Trace tricuspid regurgitation. Ozzie Anderson M.D. (Electronically Signed) Final Date: 10 February 2017 12:34 MEASUREMENTS (Male / Female) Normal Values 2D ECHO LV Diastolic Diameter PLAX 5.0 cm 4.2 - 5.9 / 3.9 - 5.3 cm LV Systolic Diameter PLAX 2.7 cm 2.1 - 4.0 cm LV Fractional Shortening PLAX 46.0 % 25 - 46 % LV Ejection Fraction 2D Teich 77.2 % IVS Diastolic Thickness 0.8 cm LVPW Diastolic Thickness 1.0 cm LV Relative Wall Thickness 0.4 RV Internal Dim ED PLAX 2.0 cm 1.9 - 3.8 cm LVOT Diameter 1.9 cm Aortic Root Diameter 2.7 cm LA Systolic Diameter LX 3.7 cm 3.0 - 4.0 / 2.7 - 3.8 cm LA Volume 45.0 cm 18 - 58 / 22 - 52 cm Ascending Aorta Diameter 3.4 cm DOPPLER AV Peak Velocity 147.0 cm/s AV Peak Gradient 8.6 mmHg AV Mean Velocity 105.0 cm/s AV Mean Gradient 5.0 mmHg AV Velocity Time Integral 31.4 cm LVOT Peak Velocity 117.0 cm/s LVOT Peak Gradient 5.5 mmHg LVOT Mean Velocity 78.2 cm/s LVOT Mean Gradient 3.0 mmHg LVOT Velocity Time Integral 24.3 cm LVOT Stroke Volume 68.9 cm AV Area Cont Eq vti 2.2 cm AV Area Cont Eq pk 2.3 cm MV Peak Velocity 108.0 cm/s MV Peak Gradient 4.7 mmHg MV Mean Velocity 57.9 cm/s MV Mean Gradient 2.0 mmHg Mitral E Point Velocity 96.7 cm/s Mitral A Point Velocity 57.3 cm/s Mitral E to A Ratio 1.7 MV PHT Velocity 110.0 cm/s MV Deceleration [place] 322.0 cm/s MV Pressure Half Time 102.5 ms MV Area PHT 2.1 cm MV Deceleration Time 229.0 ms TR Peak Velocity 116.0 cm/s TR Peak Gradient 5.4 mmHg Right Atrial Pressure 5.0 mmHg Pulmonary Artery Systolic Pressu 10.4 mmHg Right Ventricular Systolic Press 10.4 mmHg PV Peak Velocity 103.0 cm/s PV Peak Gradient 4.2 mmHg PV Mean Velocity 69.4 cm/s PV Mean Gradient 2.0 mmHg PV Velocity Time Integral 25.5 cm LV E' Lateral Velocity 13.9 cm/s Mitral E to LV E' Lateral Ratio 7.0 LV E' Septal Velocity 12.9 cm/s Mitral E to LV E' Septal Ratio 7.5
[2017-02-10] MEDS ORDERED: PERCOCET 5-3251 EACH PO (13:56)
--- NOTE | 2017-02-10 14:00 | Patient Discharge Instructions ---
Discharge Instructions General Discharge Information Special Instructions: Please follow up with your PCP upon discharge. Please follow up with Corporate Events Director, Dr. Anderson for an utpatient stress test. PATIENT INSTRUCTED TO NOT DRIVE. Acute Coronary Syndrome Inclusion Criteria At DC or during hospital stay patient has or had the following: ACS DIAGNOSIS No Discharge Core Measures Meds if any: Prescribed or Continued at Discharge Meds if any: NOT Prescribed or Continued at Discharge Congestive Heart Failure Inclusion Criteria At DC or during hospital stay patient has or had the following: CHF DIAGNOSIS No Discharge Core Measures Meds if any: Prescribed or Continued at Discharge Meds if any: NOT Prescribed or Continued at Discharge Cerebrovascular accident Inclusion Criteria At DC or during hospital stay patient has or had the following: CVA/TIA Diagnosis No Discharge Core Measures Meds if any: Prescribed or Continued at Discharge Meds if any: NOT Prescribed or Continued at Discharge Venous thromboembolism Inclusion Criteria VTE Diagnosis No VTE Type NONE VTE Confirmed by (Test) NONE Discharge Core Measures - Per Current guidelines, there needs to be overlap - treatment for the first 5 days of Warfarin therapy. - If discharged on Warfarin prior to 5 days of - overlap therapy, the patient will need to be - assessed for post discharge needs including - *Post discharge parental anticoagulation - *Warfarin and/or parental anticoagulation education - *Follow up date to check INR post discharge At least 5 days overlap therapy as Inpatient No Meds if any: Prescribed or Continued at Discharge Note: Overlap Therapy is Warfarin and Anticoagulant Meds if any: NOT Prescribed or Continued at Discharge
[2017-02-10 15:02] VITALS: BP 124/78
--- NOTE | 2017-02-10 16:18 | Operative Report ---
Operative/Inv Procedure Report Surgery Date: 02/07/17 Name of Procedure: Laparoscopic cholecystectomy Pre-Operative Diagnosis: Choledocholithiasis Post-Operative Diagnosis: Same Estimated Blood Loss: scant Surgeon/[place]: MD Cornell Pemberton Anesthesia: general endotracheal tube Operative/Procedure Note Note: Patient was positioned supine. After successful induction of general anesthesia, the patient's abdomen was clipped, prepped and draped in the usual sterile fashion. Local anesthetic was injected at the top of the umbilicus and then a curved horizontal incision little over a centimeter was made there with a 15 blade and then deepened to the midline fascia which was incised vertically a little over a centimeter. Both sides were secured with 0 Vicryl stay sutures and then the thin peritoneal layer was entered, 10 mm Olsen trocar inserted obliquely to the right, and the gas was turned on to 15 mm. After insufflation and repositioning to reverse Trendelenburg, 3 more dissecting 5 mm trochars were placed in the right subcostal area, first lateral, then mid-subcostal, then subxiphoid. The gallbladder fundus was grasped from the lateral port and retracted up over the edge of the liver and then we dissected out the area of the triangle of Calot while retracting the infundibulum caudally / laterally. First the cystic duct was identified, isolated at the neck, clipped 3 times, divided after the second clip and then in similar fashion the cystic artery was identified medially, dissected and divided. Then the gallbladder was from the liver bed using cautery, the back wall was edematous, then lowered into an Endobag and removed through the umbilical incision. The instruments and then the trochars were removed letting the gas escape. The fascial incision was closed with a figure 8 Vicryl then all 4 skin incisions were closed with interrupted subcuticular 4-0 Monocryl, followed by Mastisol Steri-Strips and Bandaids. Estimated blood loss was minimal, lap and sponge counts were correct, wound expectancy was clean-contaminated, IV fluids crystalloid, complications none, patient tolerated the procedure well and was returned to the recovery room in satisfactory condition.
--- NOTE | 2017-02-10 17:55 | PN- Cardiology ---
Subjective Subjective: * Improved abdominal discomfort although it has not completely abated. Lightheadeness persists upon arising. No significant bradycardia at this time although patient was taken off the monitor. Objective Vital Signs and I&Os Vital Signs Date Time Temp Pulse Resp B/P Pulse O2 O2 Flow FiO2 Ox Delivery Rate 02/10 1502 98.2 54 124/78 97 Room Air 02/10 0817 99.1 62 18 110/70 93 02/10 0800 Room Air 02/10 0323 58 95 02/10 0031 56 98 02/09 2345 98.8 70 18 104/58 100 CPAP Intake & Output 02/10 1600 02/10 0800 02/10 0000 02/09 1600 02/09 0800 02/09 0000 Intake Total 1360.4 1150 1150 1500 1040 460 Output Total Balance 1360.4 1150 1150 1500 1040 460 Intake, IV 760.4 800 800 700 800 400 Intake, Oral 600 350 350 800 240 60 Number 0 2 1 Bowel Movements Physical Exam: General: WD/ morbidly obese female in NAD; alert and oriented x 3 Heart: RRR w/o murmur Lungs: clear bilaterally Extremities: no edema Assessment/Plan Assessment/Plan * This patient had asymptomatic bradycardia that appears to have improved. It is difficult to know if this is a new condition or if this is her baseline. Her TFT 's are normal. Okay to discharge to home with follow up in the office. * This patient was noted on telemetry to have a short run of NSVT. Considering her chest discomfort (atypical), obesity/dyslipidemia and father's history of CT in his thirties, this patient should be risk stratified with a stress test. This will be done as an outpatient when a bit more healed. Continue telemetry? No
--- NOTE | 2017-02-18 15:55 | Discharge Summary ---
Visit Information Visit Dates Admission Date: 02/06/17 Discharge Date: 02/10/17 Hospital Course Course Attending Physician: ALAYNA MATUTE MD Primary Care Physician: HAYLEY WHITE,[facility] Course: Patient is a morbidly obese 26 year old woman s/p gastric sleeve 09/05/2016 with medical hx of GERD and obstructive sleep apnea on nocturnal CPAP. She presented with epigastric pain nausea vomiting (nonbilious nonbloody) that started on the morning of admission. She said that she is having epigastric pain and nausea intermittently over 2 months. At the time she called her surgeon who said it was normal postoperatively. She has no personal history of gallstones. Does endorse body aches and chills without fever or diarrhea. At the time of admission she was afebrile, normal heart rate and blood pressure 95% on room air. She had a positive Green sign on examination. Her labs were significant for Total bilirubin is elevated at 2.1. Transaminitis AST 788 ALT 462 ALP 145. Amylase lipase are negative. Imaging done as inpatient CT of the abdomen and pelvis not reveal any acute abnormality. MRCP 02/06/17 Cholelithiasis without imaging evidence of acute cholecystitis or choledocholithiasis. Problem list Transaminitis possible cholecystitis versus choledocholithiasis, status post cholecystectomy on 02/07/2017 Nausea Bradycardia Obstructive sleep apnea Cholecystitis status post laparoscopic cholecystectomy Patient presented with abdominal pain and elevated LFTs , likely secondary to acute cholecystitis, she under went laparoscopic cholecystectomy on 02/07/2017. Patient was given zofran and compazien for nausea. Her diet was advanced. Gastroenterology service was on board. Asymptomatic Bradycardia Patient was evaluated by cardiology for her asymptomatic bradycardia she was monitored on telemetry floor.TFT was normal . Dr. Anderson recommended an outpatient stress test for risk stratification. Obstructive sleep apnea Continued the use of CPAP at night There was a thought that her CPAP pressures need to be adjusted as they might be causing her to be bradycardic. Respiratory therapist was passed that message. Pain management post surgery Patient is on 8 mg of Dilaudid every 4 will transition to Percocet and monitor Allergies: Coded Allergies: Iodinated Contrast Media - Oral and (UNKNOWN 02/10/17) Disposition Summary Disposition Principal Diagnosis: Cholecystitis status post laparoscopic cholecystectomy Additional Diagnosis: bradycardia Discharge Disposition: home or self care Discharge Instructions General Discharge Information Code Status: Full Code Patient's Diet: Regular diet Patient's Activity: As tolerated Follow-Up Instructions/Appts: Please follow-up with primary care physician upon discharge. Please follow-up with gastroenterology service upon discharge. Medications at Discharge Discharge Medications: Continue taking these medications: Pantoprazole Sodium (Protonix) 40 MG TABLET.DR 1 Tablet ORAL DAILY Qty = 30 Comments: Last Taken: 02/06/17 Time: 9AM Ondansetron (Zofran Odt) 4 MG TAB.RAPDIS 1 Tablet SUBLINGUAL THREE TIMES DAILY as needed for NAUSEA Qty = 10 Comments: Last Taken: 02/09/17 Time: 10PM Start taking the following new medications: Oxycodone HCl/Acetaminophen (Percocet 5-325 MG Tablet) 5 MG-325 MG TABLET 1 Tablet ORAL EVERY SIX HOURS NEEDED as needed for PAIN SCALE 1-5 Qty = 14 No Refills Instructions: please take 1 pill for mild pain 1-5 pain scale and 2 pills for severe pain. Comments: Last Taken: 02/10/17 Time: 2:30PM Copies To: GIOVANI WHITE,ALAYNA; HUGO URENA MD, MD, LELAND J
== END 2017-02-10 18:34 | DRG 263 ==
LOC: ENRESERVDT → ENRESERVTM → ERH 21:47 → CRI 02-06 00:28 → ERHI 02-06 00:28 → 1NO 02-06 00:28 → 2NA 02-06 00:28 → CRI 02-07 11:07 → 1NO 02-08 19:14
PROVIDERS: Internal Medicine; Internal Medicine Hematology & Oncology; Physician Assistant Medical; Student in an Organized Health Care Education/Training Program; ADMIT Internal Medicine
PROC: 0FT44ZZ Resection of Gallbladder, Percutaneous Endoscopic Approach (ICD-10-PCS; principal; 2017-02-07)
DX: K80.60 Calculus of gallbladder and bile duct with cholecystitis, unspecified, without obstruction (principal); K21.9 Gastro-esophageal reflux disease without esophagitis; E66.01 Morbid (severe) obesity due to excess calories; Z68.41 Body mass index [BMI] 40.0-44.9, adult; G47.33 Obstructive sleep apnea (adult) (pediatric); R00.1 Bradycardia, unspecified; I47.2 Ventricular tachycardia
CPT/HCPCS: 1NP; 2NASP; 74181; CCU; 36415; 74176; 80307; 81001; 82436; 88304; 93005; 93010; 93306; G0480; J0131; J0780; J1170; J1200; J1650; J2270; J2405; J7042